=== PATIENT | female | born 1995 | race Caucasian/White ===

== ENCOUNTER → 2018-04-15 14:27 | Outpatient (CLI) | payer OTHER, SELFPAY ==
[2018-04-15 15:44] LABS: Absolute Neutrophil Count 2.4 X10^3/uL (2.0-7.7); Basophil# 0.05 X10^3/uL; Basophil% 0.9 % (0-1); Eosinophil# 0.18 X10^3/uL; Eosinophils% 3.2 % (0-5); Hematocrit 39.8 % (37-47); Hemoglobin 13.7 g/dl (12.0-15.0); Lymphocyte % 43.1 % (19-41); Mean Corp Hgb Conc 34.4 g/gl (32-36); Mean Corpuscular Hgb 29.7 pg (27.0-32.0); Mean Corpuscular Volume 86.1 fL (81-99); Mean Platelet Vol. 10.2 fl (6.2-12.0); Monocyte# 0.55 X10^3/uL; Monocyte% 9.9 % (0-10); Neutrophil # 2.39 X10^3/uL (2.7-7.7); Neutrophil % 42.9 % (47-70); Platelet Count 290 K/mm3 (150-450); RBC Distribution Width CV 12.4 % (11.6-14.6); RBC Distribution Width SD 38.2 fl (35.1-43.9); Red Blood Count 4.62 M/mm3 (4.2-5.4); White Blood Count 5.6 K/mm3 (4.4-11.0)
[2018-04-15 15:48] LABS: POSITIVE COUNT NO; POSITIVE DIFFERENTIAL NO; POSITIVE MORPHOLOGY NO
[2018-04-15 16:19] LABS: Anion Gap 11 (5-15); BUN 9 mg/dL (7-18); BUN/Creat Ratio 11.1 RATIO (10-20); Calcium,Total 9.1 mg/dL (8.5-10.1); Chloride 105 mmol/L (98-107); Creatinine, Serum 0.81 mg/dL (0.55-1.02); EST Glomerular Filtration Rate 93 mL/min (>60); Est Glom Filt Rate - Afr Amer 112 mL/min (>60); Glucose 81 mg/dL (74-106); Potassium 3.7 mmol/L (3.5-5.1); Sodium Level 142 mmol/L (136-145); T4 Free Direct 1.05 ng/dL (0.76-1.46); Thyroid Stim Hormone (TSH) 1.04 uIU/mL (0.358-3.74)
== END ==
PROVIDERS: Family Provider Family Medicine; PCP Family Medicine; Visit Provider Family Medicine
DX: R53.83 Other fatigue (principal)
CPT/HCPCS: 36415; 80048; 84439; 84443; 85025

== ENCOUNTER → 2018-04-23 11:58 | Outpatient (CLI) | payer OTHER, SELFPAY ==
[2018-04-23 13:19] LABS: Vitamin D,25 Hydroxy 48.5 ng/mL (29.95-100.01)
== END ==
PROVIDERS: Family Provider Family Medicine; PCP Family Medicine; Visit Provider Obstetrics & Gynecology
DX: R53.83 Other fatigue (principal)
CPT/HCPCS: 36415; 82306

== ENCOUNTER → 2019-01-02 08:19 | Outpatient (CLI) | payer OTHER, SELFPAY ==
--- NOTE | 2019-01-02 08:26 | US_ITS ---
STUDY: ABDOMINAL ULTRASOUND - RIGHT UPPER QUADRANT REASON FOR VISIT: Female, 23 years old. General abdominal pain for 3 months. History of gastritis and pneumonia. TECHNIQUE: Ultrasound evaluation of the right upper quadrant was performed with real-time and static roland-scale imaging. TECHNICAL QUALITY: Adequate. COMPARISON: None. FINDINGS: Liver: The liver measures 17.1 cm. There is normal echogenicity of the liver. The bile ducts are within normal limits. There is hepatic color flow. The direction of portal flow is hepatopetal. There is no demonstrated mass lesion. Gallbladder: Normal distended gallbladder. The gallbladder wall measures 2.2 mm. There is a negative sonographic Silva's sign. There is no pericholecystic fluid. There are no gallstones. Common Bile Duct (C.B.D.): The common bile duct measures 3.2 mm. Pancreas: Normal size of the head, body and tail of the pancreas. There is normal echogenicity of the pancreas. There is no demonstrated pancreatic mass or cyst. Right Kidney: Normal size of the right kidney. The right kidney measures 10.6 cm. Normal renal cortex. The right cortex measures 1.5 cm. There is no demonstrated renal mass or cyst. There is no right hydronephrosis. US/Abdomen Limited IMPRESSION: Normal right upper quadrant ultrasound examination. Electronically Signed: Bryon Daniels DO at 8:45 EDT Tel [phone], Service support ,
== END ==
PROVIDERS: Family Provider Family Medicine; PCP Family Medicine; Referring Provider Family Medicine; Visit Provider Family Medicine
DX: R10.11 Right upper quadrant pain (principal)
CPT/HCPCS: 76705

== ENCOUNTER → 2019-04-27 13:00 | Outpatient (CLI) | payer OTHER, SELFPAY ==
[2019-04-27 09:36] VITALS: BMI 28.4
[2019-04-29 11:31] LABS: HPV Reflexed? NOT INDICATED
== END ==
PROVIDERS: Family Provider Family Medicine; PCP Family Medicine; Referring Provider Obstetrics & Gynecology; Visit Provider Obstetrics & Gynecology
DX: Z12.4 Encounter for screening for malignant neoplasm of cervix (principal)
CPT/HCPCS: 87624; 88175; G0145

== ENCOUNTER → 2021-03-22 11:20 | Outpatient (CLI) | payer BC, SELFPAY ==
[2021-03-22 08:30] VITALS: BMI 29.7
[2021-03-22 12:25] LABS: hCG Titer Quant., Serum 875 mIU/mL (1-3)
== END ==
PROVIDERS: PCP Family Medicine; Referring Provider Nurse Practitioner Women's Health; Visit Provider Nurse Practitioner Women's Health
DX: N92.6 Irregular menstruation, unspecified (principal)
CPT/HCPCS: 36415; 84702

== ENCOUNTER → 2021-03-24 13:32 | Outpatient (CLI) | payer BC, SELFPAY ==
[2021-03-22 08:30] VITALS: BMI 29.7
[2021-03-24 16:48] LABS: hCG Titer Quant., Serum 2374 mIU/mL (1-3)
== END ==
PROVIDERS: PCP Family Medicine; Referring Provider Nurse Practitioner Women's Health; Visit Provider Nurse Practitioner Women's Health
DX: N91.2 Amenorrhea, unspecified (principal)
CPT/HCPCS: 36415; 84702

== ENCOUNTER → 2021-04-17 10:04 | Outpatient (CLI) | payer BC, SELFPAY ==
[2021-04-17 09:29] VITALS: BMI 29.7
[2021-04-17 10:41] LABS: Absolute Lymphocyte Count 1.51 X10^3/uL (0.83-4.51); Absolute Neutrophil Count 4.6 X10^3/uL (2.0-7.7); Basophil# 0.05 X10^3/uL; Basophil% 0.7 % (0-1); Eosinophil# 0.17 X10^3/uL; Eosinophils% 2.4 % (0-5); Hematocrit 40.2 % (37-47); Hemoglobin 13.4 g/dL (12.0-15.0); Lymphocyte # 1.51 X10^3/ul (0.83-4.51); Lymphocyte % 21.4 % (19-41); Mean Corp Hgb Conc 33.3 g/dL (32-36); Mean Corpuscular Hgb 29.1 pg (27.0-32.0); Mean Corpuscular Volume 87.4 fL (81-99); Mean Platelet Vol. 9.4 fl (6.2-12.0); Monocyte# 0.64 X10^3/uL; Monocyte% 9.1 % (0-10); NRBC Flagged by Analyzer 0 % (0-5); Neutrophil # 4.64 X10^3/uL (2.7-7.7); Platelet Count 292 K/mm3 (150-450); RBC Distribution Width CV 12.4 % (11.6-14.6); RBC Distribution Width SD 39.4 fl (35.1-43.9)
[2021-04-17 11:30] LABS: Amphetamine Urine VISTA NEGATIVE (<1000 ng/mL); Barbiturate Urine VISTA NEGATIVE (< 200 ng/mL); Benzodiazepine Urine VISTA NEGATIVE (< 200 ng/mL); Cocaine Urine VISTA NEGATIVE (< 300 ng/mL); Ecstacy Urine VISTA NEGATIVE (< 500 ng/mL); Methadone Urine VISTA NEGATIVE (< 300 ng/mL); PCP Urine VISTA NEGATIVE (< 25 ng/mL); THC Urine VISTA NEGATIVE (< 50 ng/mL); Vista UDS pH Range 7
[2021-04-17 11:52] LABS: HIV - WCH Non-Reactive (Nonreactive); Hepatitis B Surface Antigen Non-Reactive (Nonreactive); Hepatitis C Antibody Non-Reactive (Nonreactive); Rubella IgG Reactive (Nonreactive); Syphilis Antibodies Non-reactive
[2021-04-19 03:07] LABS: Chlamydia By Nucleic Acid AMP Negative (Negative)
[2021-04-19 11:55] LABS: Gonococcus By Nucleic Acid AMP Negative (Negative)
== END ==
PROVIDERS: PCP Internal Medicine; Referring Provider Obstetrics & Gynecology; Visit Provider Obstetrics & Gynecology
DX: Z34.90 Encounter for supervision of normal pregnancy, unspecified, unspecified trimester (principal); Z82.49 Family history of ischemic heart disease and other diseases of the circulatory system
CPT/HCPCS: 36415; 80307; 85025; 86703; 86762; 86780; 86803; 86850; 86900; 86901; 87086; 87088; 87340; 87491; 87591

== ENCOUNTER → 2021-06-13 08:58 | Outpatient (CLI) | payer MEDICAID, SELFPAY ==
[2021-06-19 13:07] LABS: Protein C Antigen 100 % (60-150); Protein C, Functional 110 % (73-180)
[2021-06-19 16:39] LABS: Antithrombin 3 Function 98 % (75-135); Protein S, Free 83 % (61-136); Protein S, Funtional 72 % (63-140); Protein S, Total 62 % (60-150)
== END ==
PROVIDERS: PCP Internal Medicine; Referring Provider Obstetrics & Gynecology; Visit Provider Obstetrics & Gynecology
DX: Z82.49 Family history of ischemic heart disease and other diseases of the circulatory system (principal)
CPT/HCPCS: 36415; 81241; 85300; 85302; 85303; 85305; 85306

== ENCOUNTER → 2021-08-17 10:55 | Outpatient (CLI) | payer BC, MEDICAID, SELFPAY | PROVIDERS: PCP Internal Medicine; Referring Provider Physician Assistant; Visit Provider Physician Assistant | DX: U07.1 COVID-19 (principal) | CPT/HCPCS: 87635; U0005; U0003 ==

== ENCOUNTER → 2021-09-05 07:47 | Outpatient (CLI) | payer BC, MEDICAID, SELFPAY ==
[2021-09-05 08:09] LABS: Absolute Lymphocyte Count 1.68 X10^3/uL (0.83-4.51); Absolute Neutrophil Count 6.8 X10^3/uL (2.0-7.7); Basophil# 0.03 X10^3/uL; Basophil% 0.3 % (0-1); Eosinophil# 0.26 X10^3/uL; Eosinophils% 2.7 % (0-5); Hematocrit 33.3 % (37-47); Hemoglobin 11.3 g/dL (12.0-15.0); Lymphocyte # 1.68 X10^3/ul (0.83-4.51); Lymphocyte % 17.6 % (19-41); Mean Corp Hgb Conc 33.9 g/dL (32-36); Mean Corpuscular Hgb 30.1 pg (27.0-32.0); Mean Corpuscular Volume 88.8 fL (81-99); Mean Platelet Vol. 9.2 fl (6.2-12.0); Monocyte# 0.67 X10^3/uL; NRBC Flagged by Analyzer 0 % (0-5); Neutrophil # 6.78 X10^3/uL (2.7-7.7); Neutrophil % 71.1 % (47-70); Platelet Count 288 K/mm3 (150-450); RBC Distribution Width SD 42.2 fl (35.1-43.9); Red Blood Count 3.75 M/mm3 (4.2-5.4); White Blood Count 9.5 K/mm3 (4.4-11.0)
[2021-09-05 08:25] LABS: Glucose Challenge Gest 1H 50g 148 mg/dL (70-140)
== END ==
PROVIDERS: PCP Internal Medicine; Referring Provider Obstetrics & Gynecology; Visit Provider Obstetrics & Gynecology
DX: Z13.1 Encounter for screening for diabetes mellitus (principal)
CPT/HCPCS: 36415; 82950; 85025

== ENCOUNTER → 2021-09-11 07:09 | Outpatient (CLI) | payer BC, MEDICAID, SELFPAY ==
[2021-09-11 07:50] LABS: Glucose GTT-Gestation. Fasting 91 mg/dL (<105)
[2021-09-11 09:30] LABS: Glucose GTT-Gestational 1 Hr 120 mg/dL (<190)
[2021-09-11 10:38] LABS: Glucose GTT-Gestational 2 Hr 100 mg/dL (<165)
[2021-09-11 11:44] LABS: Glucose GTT-Gestational 3 Hr 90 L (<145)
== END ==
PROVIDERS: PCP Internal Medicine; Referring Provider Nurse Practitioner Women's Health; Visit Provider Nurse Practitioner Women's Health
DX: Z13.1 Encounter for screening for diabetes mellitus (principal)
CPT/HCPCS: 36415; 82951; 82952

== ENCOUNTER 2021-10-12 07:53 | Outpatient (CLI) | payer BC, MEDICAID, SELFPAY ==
--- NOTE | 2021-10-12 07:55 | US_ITS ---
STUDY: SECOND AND THIRD TRIMESTER OBSTETRICAL ULTRASOUND - LIMITED REASON FOR EXAM: Female, 25 years old growth LMP: 02/20/2021. PRIOR ULTRASOUND: None. TECHNIQUE: Transabdominal TECHNICAL QUALITY: Adequate. FINDINGS: There is a single intrauterine fetus. The fetus is in a cephalic presentation. There is demonstrated cardiac activity with a heart rate of 137 bpm. There is a normal amniotic fluid volume. The largest amniotic fluid pocket measures 4.4 cm. The amniotic fluid index (MAGGIE) is 12 cm. The placenta is posterior and right lateral in location and is not low lying. There are Grade 2 placental changes. The cervix measures 3.8 cm in length. BIOMETRY: BPD: 8.9 cm: 35 weeks, 6 days HC: 31.7 cm: 35 weeks, 4 days AC: 30.5 cm: 34 weeks, 3 days FL: 6.7 cm: 34 weeks, 3 days Age by LMP: 33 weeks, 3 days. TIM by LMP: 11/27/2021. age by current US: 34 weeks, 5 days. TIM by current US: 11/18/2021. Estimated weight: 2530 grams, +/- 379 grams, 82 percentile. US/OB Limited With Biometrics IMPRESSION: Single live intrauterine gestation with a mean gestational age of 34 weeks and 5 days. Electronically Signed: Pedrito Mcdonald MD at 14:16 EST ,
== END 2021-10-12 23:59 | disposition short-term general hospital (02) ==
LOC: OPUS 07:53
PROVIDERS: PCP Internal Medicine; Referring Provider Nurse Practitioner Women's Health; Visit Provider Nurse Practitioner Women's Health
DX: U07.1 COVID-19 (principal)
CPT/HCPCS: 76816

== ENCOUNTER 2021-10-21 10:20 | Outpatient (CLI) | payer BC, MEDICAID, SELFPAY ==
[2021-10-21] VITALS (9 sets, daily range): BP systolic 117–126; BP diastolic 63–78; PULSE 114–133; TEMP 37.4–37.7; O2SAT 97–100; BMI 36.0
[2021-10-21 11:03] LABS: Mucous, Urine 0 SEEN /hpf (<or=2+); Red Blood Cells-Urine 0 SEEN /hpf (0-5); White Blood Cells 0 SEEN /hpf (0-5)
[2021-10-21 11:06] LABS: Color, Urine Yellow (Yellow); Glucose, Dipstick Normal (Normal); Ketone-Dipstick 50 mg/dl (Negative); Leukocyte Esterase-Dipstick 25 /ul (Negative); Nitrite-Dipstick Negative (Negative); Occult Blood-Urine 10 /ul (Negative); Protein-Dipstick 15 mg/dl (Negative); Urine Bilirubin Dipstick Negative (Negative); Urine Clarity Sl. Cloudy (Clear); Urine Urobilinogen 1 mg/dl (Normal)
[2021-10-21 11:12] LABS: Bacteria 1+ /hpf (None Seen); Squamous Epithelial Cells - UA 5-10 SEEN /hpf (5-10)
[2021-10-21] MEDS: Ondansetron 4 MG/2 ML Vial IV (11:56)
[2021-10-21] MEDS: Famotidine 200 MG/20 ML MDV 20 MG in 0.9% Normal Saline (Pres. free 8 ML 300 MG IV (12:02)
[2021-10-21 12:10] LABS: Absolute Lymphocyte Count 0.52 X10^3/uL (0.83-4.51); Basophil# 0.02 X10^3/uL; Basophil% 0.2 % (0-1); Hematocrit 34.7 % (37-47); Lymphocyte # 0.52 X10^3/ul (0.83-4.51); Lymphocyte % 6.2 % (19-41); Mean Corp Hgb Conc 31.7 g/dL (32-36); Mean Corpuscular Hgb 27.6 pg (27.0-32.0); Mean Corpuscular Volume 87.2 fL (81-99); Monocyte% 7.2 % (0-10); NRBC Flagged by Analyzer 0 % (0-5); Neutrophil # 7.04 X10^3/uL (2.7-7.7); Neutrophil % 84.4 % (47-70); POSITIVE DIFFERENTIAL YES; Platelet Count 279 K/mm3 (150-450); RBC Distribution Width CV 13.2 % (11.6-14.6); RBC Distribution Width SD 41.4 fl (35.1-43.9); Red Blood Count 3.98 M/mm3 (4.2-5.4); White Blood Count 8.4 K/mm3 (4.4-11.0)
[2021-10-21 12:16] LABS: Differential Indicated SCAN CRITERIA MET
[2021-10-21 12:42] LABS: ALB/GLOB Ratio 0.6 RATIO (0.9-2.4); AST(SGOT) 17 U/L (15-37); Alanine Aminotransfer ALT/SGPT 14 U/L (13-56); Albumin, Serum 2.4 g/dL (3.2-5.0); Alkaline Phosphatase 151 U/L (45-117); Anion Gap 6 (5-15); BUN 8 mg/dL (7-18); BUN/Creat Ratio 12.1 RATIO (10-20); Chloride 106 mmol/L (98-107); Creatinine, Serum 0.66 mg/dL (0.55-1.02); EST Glomerular Filtration Rate 115 mL/min (>60); Est Glom Filt Rate - Afr Amer 139 mL/min (>60); Estimated Creatinine Clearance 111.54 ml/min; Globulin 3.7 g/dL (2.2-4.2); Glucose 112 mg/dL (74-106); Potassium 3.6 mmol/L (3.5-5.1); Protein, Total 6.1 g/dL (6.4-8.2); Sodium Level 135 mmol/L (136-145)
[2021-10-21] MEDS: Ringers, Lactated 1,000 ML IV.SOLN. 1000 ML IV (12:55)
[2021-10-21] MEDS: Potassium Chloride Oral Tablet 20 MEQ 40 MEQ PO (13:35)
[2021-10-21] MEDS: Acetaminophen 500 MG Tablet 1000 MG PO (13:50)
[2021-10-21] MEDS: Ceftriaxone 1 GM/50 ML BAG IV (14:49)
--- NOTE | 2021-10-21 21:53 | OB.TRI.HP_ITS ---
HPI - General HPI Narrative SILVESTRE WALTON, is a 25 y/o @ 34 weeks 5 days who presents to L&D for nausea and vomiting in . This started earlier in the day and the patient states that she is unable to hold down fluids at home. Maternal Data Information TIM Calculator Estimated Delivery Date Method Current WG Current Estimate 11/27/21 LMP (Certain) 36w 6d Other Estimates 11/22/21 Ultrasound #1 37w 4d PFSH PFSH Medical History Acne Lab test positive for detection of COVID-19 virus Narcolepsy Home Medications prenat.vits,danelle,[id number] 1 tab PO DAILY 04/03/21 [History Last Taken 10/19/21 22:00 1 tab] dihydroxyaluminum sodium carb [Rolaids] 2 mg PO PRN PRN 10/21/21 [History Last Taken 10/21/21 2 tabs] promethazine 12.5 mg tablet 12.5 mg PO Q6H PRN #60 tab 10/24/21 [Rx Last Taken Unknown] Allergy/AdvReac Type Severity Reaction Status Date / Time No Known Allergies Allergy Verified 11/03/21 08:45 Family History Grandmother Diabetes Breast cancer Brother Diabetes type 1, controlled Mother Thyroid disorder Father CVA (cerebral vascular accident) DVT (deep venous thrombosis) Sister Cancer ALL Social History adopted: No household members: significant other current occupational status: employed current occupation: [employer] pets and animals: Yes (avoid litter box) pets and animals: cat(s) and dog(s) Smoking Status: Never smoker alcohol intake: current alcohol intake frequency: holidays/special occasions only details: not while substance use type: does not use caffeine: No what type of physical activity do you participate in: none seatbelt use: always do you feel safe at home: Yes additional social history: boyfriend 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) History 1 Elective abortions Hx Para Spontaneous abortions Hx # Term Pregnancies Ectopic pregnancies Hx # Pregnancies Multiple births # of living children Visit Details Expected Delivery Route/Plan Labor Preferences- CB/BF classes: yes labor support person: Go labor intervention preferences: [] pain management options preferred: wants natural cut cord/dad catch: maybe : yes PP control planned: discussed discussed possible routes of delivery and associated risks: [] special requests: [] Plans Covid status: non immune, counseled regarding risk of covid in vs vaccination and declined vaccination Flu vaccine: given Tdap vaccine: given Rhogam: na LARC form signed: yes movement and labor precautions reviewed. Problem list reviewed and updated with the most current plan of care details and appropriate orders placed. Relevant counseling for the gestational age provided. Continue routine care and follow up unless otherwise noted in visit notes/problem list details OB Flowsheet Initial Weight: 180 lb Date -?-?-?-?-?-?-?-?-?-?-?-?- EGA Weight BP Urine Prot -?-?-?-?-?-?-?-?-?-?-?-?- Glucose FHR FuHt Pres Dilation -?-?-?-?-?-?-?-?-?-?-?-?- Effaced St Visit Note 04/17/21 -?--?-?-?-?-?-?-?-?-?-?-?- 8w 0d 122/72 -?-?-?-?-?-?-?-?-?-?-?-?- 180 -?-?-?-?-?-?-?-?-?-?-?-?- SM- CRL cons wit h LMP 05/15/21 -?-?-?-?-?-?-?-?-?-?-?-?- 12w 0d 179 lb 2 oz (-14 oz) 120/68 Negative -?-?-?-?-?-?-?-?-?-?-?-?- Negative 160 -?-?-?-?-?-?-?-?-?-?-?-?- GP - no cramping or bleeding. Anatomy scan ordered. 06/13/21 -?-?-?-?-?-?-?-?-?-?-?-?- 16w 1d 182 lb 2 oz (+2 lb 2 oz) 102/64 Negative -?-?-?-?-?-?-?-?-?-?-?-?- Negative 145 -?-?-?-?-?-?-?-?-?-?-?-?- SM- no vb crampi ng us scheduled 07/12/21 -?-?-?-?-?-?-?-?-?-?-?-?- 20w 2d 187 lb 6 oz (+7 lb 6 oz) 132/68 Negative -?-?-?-?-?-?-?-?-?-?-?-?- Negative 148 -?-?-?-?-?-?-?-?-?-?-?-?- -No VB, LOF. G ood FM. Order for echo. flu vaccine. Nl anatomy US. 08/07/21 -?-?-?-?-?-?-?-?-?-?-?-?- 24w 0d 106/62 Negative -?-?-?-?-?-?-?-?-?-?-?-?- Negative 145 -?-?-?-?-?-?-?-?-?-?-?-?- SM- no vb lof go od fm no reuglar ctx 09/05/21 -?-?-?-?-?-?-?-?-?-?-?-?- 28w 1d 200 lb (+20 lb) 124/70 Negative -?-?-?-?-?-?-?-?-?-?-?-?- Negative 156 -?-?-?-?-?-?-?-?-?-?-?-?- -No Vb, LOF. G ood FM. Ordered 32 and 36 wk growth US. 28 wk labs. karthikeyan cordova. 09/22/21 -?-?-?-?-?-?-?-?-?-?-?-?- 30w 4d 202 lb 8 oz (+22 lb 8 oz) 120/68 Negative -?-?-?-?-?-?-?-?-?-?-?-?- Negative 163 32 -?-?-?-?-?-?-?-?-?-?-?-?- JV- echo was nor mal. no complaints today. has growth scans ordered, taking baby asa daily 10/05/21 -?-?--?-?-?-?-?-?-?-?-?-?- 32w 3d 208 lb 6 oz (+28 lb 6 oz) 126/70 Negative -?-?-?-?-?-?-?-?-?-?-?-?- Negative 145 33 -?-?-?-?-?-?-?-?-?-?-?--?- SM- no vb lof go od fm no regular ctx 10/19/21 -?-?-?-?-?-?-?-?-?-?-?-?- 34w 3d 213 lb 4 oz (+33 lb 4 oz) 130/72 Negative -?-?-?-?-?-?-?-?-?-?-?-?- Negative 152 35 -?-?-?-?-?-?-?-?-?-?-?-?- JV- no lof, vagi nal bleeding, or dec fm. last growth scan was 82%. next scan is at 36 weeks for growth. 10/21/21 -?-?-?-?-?-?-?-?-?-?-?-?- 34w 5d 209 lb 14.081 oz (+29 lb 14.081 oz) 126/78 126/78 122/73 124/63 117/70 124/72 15 mg/dl (Negative) H -?-?-?-?-?-?-?-?-?-?-?-?- -?-?-?-?-?-?-?-?-?-?-?-?- 10/23/21 -?-?-?-?-?-?-?-?-?-?-?-?- 35w 0d 214 lb (+34 lb) 110/60 Trace -?-?-?-?-?-?-?-?-?-?-?-?- Negative 149 36 -?-?-?-?-?-?-?-?-?-?-?-?- MH-No VB, LOF. G ood FM. Seen WP 2 for dehydration. Feeling much improved. Slight nausea today but needs to pharmacy picking technician new Rx. Will call office with name of med. 11/03/21 -?-?-?-?-?-?-?-?-?-?-?-?- 36w 4d 216 lb 4 oz (+36 lb 4 oz) 114/78 Negative -?-?-?-?-?-?-?-?-?-?-?-?- Negative 145 37 Cephalic 0 .5 -?-?-?-?-?-?-?-?-?-?-?-?- -1 SM- no v b lof good fm no regualr ctx gbs today ROS Constitutional Constitutional: Reports systems reviewed and no addt'l complaints, except as documented Gastrointestinal Gastrointestinal: Denies bloating, constipation, cramping, diarrhea, nausea or vomiting Genitourinary Genitourinary: Reports other Details: Denies vaginal odor, vaginal bleeding, or vaginal discharge ; Denies difficulty urinating or flank pain Physical Exam HEENT normocephalic Resp normal respiratory effort and normal air movement no CVA tenderness Extremity normal to inspection General Extremity: edema bilateral (trace ) NST FHR Rate Baby A Baseline: 1600 Variability:: Moderate Accelerations:: 15 x 15 Decelerations:: None NST Reactive:: Yes FHR Category:: Category I Uterine Activity:: irritability present Assessment & Plan (1) Abnormal glucose affecting : COMMENT: 3 hr GTT NL (2) Lab test positive for detection of COVID-19 virus: COMMENT: 81mg ASA and growth US @ 32 and 36 wk nl growth US (3) History of congenital heart defect: COMMENT: in patient, closed spontaneously as a child, recommend - normal echo and growth- needs repeat views in 2 weeks (4) Anxiety: COMMENT: no meds/bad experience with med in past, started counseling. (5) : QUALIFIERS: Weeks of gestation: 36 weeks Qualified Code(s): Z3A.36 - 36 weeks gestation of COMMENT: declined afp, genetic and carrier screen. Anatomy US normal (6) Supervision of normal first : QUALIFIERS: Trimester: third trimester Qualified Code(s): Z34.03 - Encounter for supervision of normal first , third trimester COMMENT: PRR TIM 11/27/21 girl [place] BF: Go (7) Narcolepsy: (8) Depression: QUALIFIERS: Depression Type: dysthymia Qualified Code(s): F34.1 - Dysthymic disorder COMMENT: counseling started. didn't like wellbutrin. failed celexa in the past. May consider zoloft later intake with counselor done this week 09/22/21 PLAN: IV fluids, IV zofran and rest. Pt improved after several hours of monitoring. dc'd to home Charges/Coding Multi Select Codes Visit Charges Office Visit/Consults: 55129 OV L3 Est Urinary/Genital Urinary/Genital CPT Codes: 58586-80 non-stress test Interp
== END 2021-10-21 16:00 | disposition home or self-care (01) ==
LOC: WPOUT 10:25 → WP 10:25
PROVIDERS: PCP Internal Medicine; Referring Provider Obstetrics & Gynecology; Visit Provider Obstetrics & Gynecology
DX: O99.810 Abnormal glucose complicating pregnancy (principal); O98.513 Other viral diseases complicating pregnancy, third trimester; O99.353 Diseases of the nervous system complicating pregnancy, third trimester; O99.343 Other mental disorders complicating pregnancy, third trimester; U07.1 COVID-19; F34.1 Dysthymic disorder; G47.419 Narcolepsy without cataplexy; Z3A.36 36 weeks gestation of pregnancy
CPT/HCPCS: 96365; 96375; 96367; 59025; 59050; 80053; 81001; 85025; 87086; 87088; 87426; 87804; 99218; J7120; G0378; J2405; J3490

== ENCOUNTER 2021-11-03 09:59 | Outpatient (CLI) | payer BC, MEDICAID, SELFPAY | END 2021-11-03 23:59 | disposition home or self-care (01) | LOC: LABSPEC 11-04 10:01 | PROVIDERS: PCP Internal Medicine; Visit Provider Obstetrics & Gynecology | DX: Z34.03 Encounter for supervision of normal first pregnancy, third trimester (principal) | CPT/HCPCS: 87081 ==

== ENCOUNTER 2021-11-10 08:39 | Outpatient (CLI) | payer BC, MEDICAID, SELFPAY ==
--- NOTE | 2021-11-10 09:00 | US_ITS ---
STUDY: SECOND AND THIRD TRIMESTER OBSTETRICAL ULTRASOUND - LIMITED REASON FOR EXAM: Female, 25 years old . growth. LMP: 02/20/2021. PRIOR ULTRASOUND: Comparison is made with prior study dated 10/12/2021. TECHNIQUE: Transabdominal TECHNICAL QUALITY: Adequate. FINDINGS: There is a single intrauterine fetus. The fetus is in a cephalic presentation. There is demonstrated cardiac activity with a heart rate of 140 bpm. There is a normal amniotic fluid volume. The largest amniotic fluid pocket measures 5.1 cm. The amniotic fluid index (MAGGIE) is 12.3 cm. The placenta is posterior in location and is not low lying. There are Grade 3 placental changes. BIOMETRY: BPD: 9.7 cm: 39 weeks, 5 days HC: 34.8 cm: 40 weeks, 2 days AC: 35.6 cm: 39 weeks, 3 days FL: 7.4 cm: 37 weeks, 6 days Age by LMP: 37 weeks, 4 days. TIM by LMP: 11/27/2021. age by prior US: 38 weeks, 6 days. TIM by prior US: 11/18/2021. age by current US: 39 weeks, 2 days. TIM by current US: 11/16/2019. Estimated weight: 3759 grams, +/- 564 grams, 93 percentile. US/OB Limited With Biometrics IMPRESSION: Single live intrauterine gestation with a mean gestational age of 38 weeks and 6 days. The measurements obtained today fall within the normal expected range. Electronically Signed: Pedrito Mcdonald MD at 14:50 EST ,
== END 2021-11-10 23:59 | disposition home or self-care (01) ==
LOC: OPUS 09:00
PROVIDERS: PCP Internal Medicine; Referring Provider Nurse Practitioner Women's Health; Visit Provider Nurse Practitioner Women's Health
DX: U07.1 COVID-19 (principal)
CPT/HCPCS: 76816

== ENCOUNTER 2021-11-30 01:25 | Inpatient (IN) | payer MEDICAID, SELFPAY ==
[2021-11-30] VITALS (70 sets, daily range): BP systolic 115–170; BP diastolic 57–91; PULSE 61–168; TEMP 36.7–38.5; O2SAT 78–100; BMI 38.5
[2021-11-30] MEDS: Lactated Ringers 1,000 ML 999 ML IV (02:10)
[2021-11-30 02:28] LABS: Absolute Lymphocyte Count 1.84 X10^3/uL (0.83-4.51); Absolute Neutrophil Count 5.5 X10^3/uL (2.0-7.7); Basophil# 0.02 X10^3/uL; Basophil% 0.2 % (0-1); Eosinophil# 0.17 X10^3/uL; Hematocrit 33.6 % (37-47); Hemoglobin 10.8 g/dL (12.0-15.0); Lymphocyte # 1.84 X10^3/ul (0.83-4.51); Lymphocyte % 21.6 % (19-41); Mean Corp Hgb Conc 32.1 g/dL (32-36); Mean Corpuscular Hgb 26.9 pg (27.0-32.0); Mean Corpuscular Volume 83.8 fL (81-99); Mean Platelet Vol. 11.3 fl (6.2-12.0); Monocyte# 0.94 X10^3/uL; Monocyte% 11.1 % (0-10); NRBC Flagged by Analyzer 0 % (0-5); Neutrophil # 5.47 X10^3/uL (2.7-7.7); Neutrophil % 64.4 % (47-70); Platelet Count 269 K/mm3 (150-450); RBC Distribution Width CV 13.6 % (11.6-14.6); RBC Distribution Width SD 42.3 fl (35.1-43.9); Red Blood Count 4.01 M/mm3 (4.2-5.4); White Blood Count 8.5 K/mm3 (4.4-11.0)
[2021-11-30] MEDS: fentaNYL 100 MCG/2 ML Ampul IV (02:42)
[2021-11-30 02:44] LABS: AST(SGOT) 15 U/L (15-37); Alanine Aminotransfer ALT/SGPT 11 U/L (13-56); Creatinine, Serum 0.68 mg/dL (0.55-1.02); EST Glomerular Filtration Rate 110 mL/min (>60); Est Glom Filt Rate - Afr Amer 133 mL/min (>60); Estimated Creatinine Clearance 108.26 ml/min; Uric Acid 4.1 mg/dL (2.6-6.0)
[2021-11-30] MEDS: Lactated Ringers 1,000 ML 50 ML IV (03:11)
[2021-11-30] MEDS: fentaNYL-bupivacaine (epidural) 100 ML BAG EPIDURAL ×4 (04:24→16:58)
--- NOTE | 2021-11-30 06:46 | PCM.HP.OB ---
HPI - General General Date of Admission: 11/30/21 HPI Narrative SILVESTRE WALTON, is a 25 y/o @40 weeks who presents to L&D in active labor. Her blood pressure was somewhat elevated when she arrived, however [facility] labs were found to be normal. [facility] Medical History (Updated 11/30/21 @ 01:35 by Gianna Gonsales) Acne Anxiety Lab test positive for detection of COVID-19 virus Narcolepsy Home Medications prenat.vits,danelle,[id number] 1 tab PO DAILY 04/03/21 [History Last Taken 11/29/21 08:00] aspirin 1 mg PO DAILY 11/30/21 [History Last Taken Unknown] Allergy/AdvReac Type Severity Reaction Status Date / Time No Known Allergies Allergy Verified 11/30/21 01:30 Family History Grandmother Diabetes Breast cancer Brother Diabetes type 1, controlled Mother Thyroid disorder Father CVA (cerebral vascular accident) DVT (deep venous thrombosis) Sister Cancer ALL Social History adopted: No household members: significant other current occupational status: employed current occupation: [employer] pets and animals: Yes (avoid litter box) pets and animals: cat(s) and dog(s) Smoking Status: Never smoker alcohol intake: current alcohol intake frequency: holidays/special occasions only details: not while substance use type: does not use caffeine: No what type of physical activity do you participate in: none seatbelt use: always do you feel safe at home: Yes additional social history: boyfriend 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) History 1 Elective abortions Hx Para 0 Spontaneous abortions Hx # Term Pregnancies Ectopic pregnancies Hx # Pregnancies Multiple births # of living children NST FHR Rate Baby A Variability:: Moderate Accelerations:: 15 x 15 Decelerations:: Variable NST Reactive:: Yes FHR Category:: Category I Uterine Activity:: q3-5 minutes ROS Constitutional Constitutional: Denies change in weight, fatigue, fever(s), headache(s), poor appetite or weakness Eyes Eyes: Denies blurry vision, change in vision, seeing flashes or spots in vision ENT HEENT: Denies dizziness, headache(s), loss taste/smell or sore throat Cardiovascular Cardiovascular: Denies chest pain, dizziness, dyspnea, irregular heart rhythm, leg edema, palpitations, rapid heart rate or vomiting Respiratory/Chest Respiratory/Chest: Denies chest tightness, cough, dyspnea or breast pain Gastrointestinal Gastrointestinal: Denies abdominal pain, anorexia, constipation, cramping, diarrhea, hemorrhoids, vomiting or weight changes Genitourinary Genitourinary: Denies dysuria, flank pain, genital lesions, genital pain, urinary frequency or urinary urgency Musculoskeletal Musculoskeletal: Denies back pain, difficulty walking, joint pain, limited range of motion, muscle cramps or numbness Integumentary Integumentary: Denies lesions or unusual bruising Neurologic Neurologic: Denies abnormal movements, abnormal speech, dizziness, numbness, seizure-like activity or syncope Psychiatric Psychiatric: Denies anxiety, behavioral changes, change in appetite, change in libido, cognitive impairment, confusion, depression, difficulty concentrating, hallucinations or suicidal thoughts Endocrine Endocrinology: Denies excessive sweating, polydipsia or polyuria Hematologic/Lymphatic Hematologic/Lymphatic: Denies easy bleeding, easy bruising or lymphadenopathy Allergic/Immunologic Allergic/Immunologic: Denies itchy eyes, lip swelling, seasonal rhinorrhea, rhinitis, throat swelling, tongue swelling, eczemia, wheezing or asthma Vital Signs Vital Signs Vital Signs: 11/30/21 00:46 11/30/21 03:48 11/30/21 03:53 Temperature Temperature Source Pulse Rate 73 79 68 Blood Pressure 134/79 H BP Systolic 134 BP Diastolic 79 Pulse Ox 100 100 11/30/21 03:58 11/30/21 03:59 11/30/21 04:03 Temperature Temperature Source Pulse Rate 92 71 80 Blood Pressure 149/72 H BP Systolic 149 BP Diastolic 72 Pulse Ox 100 100 11/30/21 04:05 11/30/21 04:08 11/30/21 04:09 Temperature 98.2 F Temperature Source Temporal Pulse Rate 78 93 Blood Pressure 156/91 H 165/80 H BP Systolic 156 165 BP Diastolic 91 80 Pulse Ox 99 11/30/21 04:13 11/30/21 04:15 11/30/21 04:18 Temperature Temperature Source Pulse Rate 107 H 90 99 Blood Pressure 146/91 H BP Systolic 146 BP Diastolic 91 Pulse Ox 99 99 11/30/21 04:19 11/30/21 04:23 11/30/21 04:24 Temperature Temperature Source Pulse Rate 88 70 82 Blood Pressure 138/81 H 123/61 H BP Systolic 138 123 BP Diastolic 81 61 Pulse Ox 100 11/30/21 04:28 11/30/21 04:29 11/30/21 04:33 Temperature Temperature Source Pulse Rate 82 85 Blood Pressure 123/70 H BP Systolic 123 BP Diastolic 70 Pulse Ox 100 100 11/30/21 04:35 11/30/21 04:38 11/30/21 04:40 Temperature Temperature Source Pulse Rate 96 85 78 Blood Pressure 124/78 H 121/62 H BP Systolic 124 121 BP Diastolic 78 62 Pulse Ox 100 11/30/21 04:42 11/30/21 05:13 11/30/21 05:16 Temperature 98.2 F Temperature Source Temporal Pulse Rate 61 71 93 Blood Pressure 145/72 H 135/89 H BP Systolic 145 135 BP Diastolic 72 89 Pulse Ox 82 11/30/21 06:25 Temperature 98.3 F Temperature Source Temporal Pulse Rate 81 Blood Pressure 140/75 H BP Systolic 140 BP Diastolic 75 Pulse Ox 100 Weight Weight: 225 lb 9.584 oz Body Mass Index (BMI) 38.5 Physical Exam Const alert, oriented x3, no apparent distress and healthy appearing General Appearance: cooperative; Negative for anxious HEENT normocephalic Face and Sinus: normal facial exam Eyes EOMs intact bilaterally and no scleral icterus General Eye: normal appearance of both eyes Neck full ROM and supple Lymph Lymphatic: no lymphadenopathy noted Chest Chest: abnormal inspection of the chest Resp normal respiratory effort Effort and Inspection: able to speak in complete sentences Cardio regular rate GI soft to palpation and non-tender Inspection: gravid Palpation: soft; Negative for tender external exam normal Amniotic Fluid: ROM+plus Back/Spine no CVA tenderness Extremity normal to inspection, full ROM and no clubbing, cyanosis or edema General Extremity: Negative for calf tenderness or edema Skin Lesions: no lesions Rashes: no rashes Psych mental status grossly normal Labs Labs Labs: Blood Type O POSITIVE Antibody Screen NEGATIVE Hct 33.6 % (37-47) L Hgb 10.8 g/dL (12.0-15.0) L Obstetrics US Syphilis Total Ab Non-reactive Rubella IgG Antibody Reactive (Nonreactive) Hep Bs Antigen Non-Reactive (Nonreactive) Chlamydia DNA (ESTUARDO) Negative (Negative) Neisseria gonorrhoeae DNA (ESTUARDO) Negative (Negative) HIV 1&2 Antibody Non-Reactive (Nonreactive) Glucose 1 Hr 50 gm 148 mg/dL (70-140) H Assessment & Plan (1) Depression: QUALIFIERS: Depression Type: dysthymia Qualified Code(s): F34.1 - Dysthymic disorder COMMENT: counseling started. didn't like wellbutrin. failed celexa in the past. May consider zoloft later intake with counselor done this week 09/22/21 (2) Supervision of normal first : QUALIFIERS: Trimester: third trimester Qualified Code(s): Z34.03 - Encounter for supervision of normal first , third trimester COMMENT: PRR TIM 11/27/21 girl [place] BF: Go (3) : QUALIFIERS: Weeks of gestation: 39 weeks Qualified Code(s): Z3A.39 - 39 weeks gestation of COMMENT: declined afp, genetic and carrier screen. Anatomy US normal. GBS neg IOL set up for 12/04/21 at 7 pm (cytotec) (4) Anxiety: COMMENT: no meds/bad experience with med in past, started counseling. (5) History of congenital heart defect: COMMENT: in patient, closed spontaneously as a child, recommend - normal echo and growth- needs repeat views in 2 weeks (6) Abnormal glucose affecting : COMMENT: 3 hr GTT NL (7) Lab test positive for detection of COVID-19 virus: COMMENT: 81mg ASA and growth US @ 32 and 36 wk nl growth US (8) Narcolepsy: PLAN: Patient presents IAL, plan expectant management for , pitocin/AROM PRN if needed. Pain management: plans epidural. GBS negative. Management of any complications: none other than covid in I have reviewed the [facility] and made any clinically relevant updates.
--- NOTE | 2021-11-30 06:50 | PN_ITS ---
Progress Note pt is comfortable with epidural. She consents to AROM current tracing: FHT: Moderate variability reactive no decelerations category I tracing Ringo: q2 min Contractions cx: 890/0 membranes ruptured with clear fluid return reviewed tracing abnormalities since last note: cat 1 A/P: continue pitocin. anticpate soon
[2021-11-30] MEDS: Lactated Ringers 1,000 ML 200 ML IV ×3 (08:16→17:39)
[2021-11-30] MEDS: Mag Hydrox/Al Hydrox/Simeth 30 ML UDC PO (11:23)
[2021-11-30] MEDS: Ondansetron 4 MG/2 ML Vial IV (11:39)
--- NOTE | 2021-11-30 13:17 | PCM.PN.BLA ---
Progress Note pt is sitting up in bed. epidural running and she is comfortable. current tracing: FHT: 145 Moderate variability reactive no decelerations category I tracing Ali Chukson: q 2 min Contractions cx: 9/80/0 at 0 station A/P: arrested at 0 station now for 6 hours and some swelling on the anterior rim. will try benadryl and give a bit more time to descend
[2021-11-30] MEDS: DiphenhydrAMINE 50 MG/ML Syringe IV (13:28)
[2021-11-30 13:40] LABS: Protein, Urine (Random) 230.9 mg/dL (<11.9); Protein:Creat Ratio 1749 mg/g CRE (0-200)
[2021-11-30] MEDS: Oxytocin 30 units/NS 500 ml 30 UNITS/500 ML IV.SOLN IV (16:32)
[2021-11-30] MEDS: Lactated Ringers 500 ML 999 ML IV (19:25)
[2021-11-30] MEDS: Oxytocin 30 units/NS 500 ml 30 UNITS/500 ML IV.SOLN 334 UNITS IV (19:55)
--- NOTE | 2021-11-30 20:17 | EX.PCM.OBRPT ---
Assessment & Plan (1) Depression: QUALIFIERS: Depression Type: dysthymia Qualified Code(s): F34.1 - Dysthymic disorder COMMENT: counseling started. didn't like wellbutrin. failed celexa in the past. May consider zoloft later intake with counselor done this week 09/22/21 (2) Supervision of normal first : QUALIFIERS: Trimester: third trimester Qualified Code(s): Z34.03 - Encounter for supervision of normal first , third trimester COMMENT: PRR ITM 11/27/21 girl [place] BF: Go (3) : QUALIFIERS: Weeks of gestation: 39 weeks Qualified Code(s): Z3A.39 - 39 weeks gestation of COMMENT: declined afp, genetic and carrier screen. Anatomy US normal. GBS neg IOL set up for 12/04/21 at 7 pm (cytotec) (4) Anxiety: COMMENT: no meds/bad experience with med in past, started counseling. (5) History of congenital heart defect: COMMENT: in patient, closed spontaneously as a child, recommend - normal echo and growth- needs repeat views in 2 weeks (6) Abnormal glucose affecting : COMMENT: 3 hr GTT NL (7) Lab test positive for detection of COVID-19 virus: COMMENT: 81mg ASA and growth US @ 32 and 36 wk nl growth US (8) Narcolepsy: Vaginal Delivery Maternal Presentation Maternal Presentation: Active Labor Type of Induction: Amniotomy Operative Information Date of Procedure: 11/30/21 Pre-Operative Diagnosis: 40 weeks, active labor, prolonged decels, protracted labor Post-Operative Diagnosis: 40 weeks, active labor, prolonged decels, protracted labor Type of Anesthesia: Epidural Estimated Blood Loss: 200cc Findings Description of Procedure: Patientpushed for 3 hours and a prolonged decel was noted. The patient was put into a left lateral position and the heart rate recovered after 2 minutes. She was then consented for a vacuum extraction. The kiwi vacuum was placed posterior to the anterior fontanelle and pumped to the green zone on the device. The device was pulled and popped off x 2. This assisted in decent to a +3 station and she pushed the rest of the time on her own. The patient delivered the head in the DEMETRIUS presentation. The head was delivered atraumatically. The anterior and posterior shoulders delivered without complication followed by the rest of the infant and the was placed on the maternal abdomen. Delayed cord clamping was employed for approximately 60 seconds. Cord was clamped and cut and gentle traction was applied to the cord and the placenta delivered spontaneously immediately following it was noted to be intact with three-vessel cord. The perineum and vagina were inspected and noted to have a 1st degree laceration and also multiple micro tears along the posterior aspect of the vagina. After the 1st degree was repaired with a 3-0 vicryl suture, Raymond was applied to the micro tears and curlex packing was placed at the lower vaginal region. EBL was 200cc. Patient and tolerated delivery well. Presentation: Vertex Amniotic Fluid Description: Clear Placental Delivery Description: Spontaneous Placenta Disposition: [facility] Cord Vessel Description: 3 Vessels Cord Entanglement: None A Gender: Female (1 minute): 8 (5 minute): 9 Delayed Cord Clamping: Yes Post Vaginal Delivery Medications Given After Delivery: IV Pitocin Episiotomy Description: None Laceration: 1st degree Complication Complications: None
--- NOTE | 2021-11-30 20:30 | PCM.DC ---
Discharge Instructions Diet Discharge Diet: No restrictions Activity Discharge Activity: Return to Normal Activity, May Not Drive (while taking narcotic pain medications.) and May Shower May resume sexual activity in: 4-6 weeks Dressing / Incision Call your doctor if your incision/area has: Continuous Slow Oozing, Sudden Increased Bleeding, Increased Pain/ Swelling, Increased Redness and Foul Smelling Discharge Follow Up Care Please Follow Up With: Luana Boswell, When: Call [phone] to make an appointment with your doctor in 6 weeks. If you had elevated blood pressure or 4th degree laceration, you will need to be seen in 2 weeks. Test Results: Test results from this visit will be discussed in further detail at your follow-up appointment, if applicable. Discharge Plan Admission Admit Date/Time: 11/30/21 01:25 Primary Reason for Your Visit: vaginal delivery Attending Provider: Luana Boswell Primary Care Provider: Sheryl Friedman Discharge Orders/Prescriptions Prescriptions: New ibuprofen 800 mg tablet 800 mg PO Q8H PRN (Reason: pain) 7 Days Qty: 30 RF: 0 Continued prenat.vits,danelle,[id number] Tablet 1 tab PO DAILY RF: 0 Discontinued aspirin 81 mg Capsule 1 mg PO DAILY RF: 0 Referrals / Follow Up: Sheryl Freidman MD [Primary Care Provider] - Disposition Disposition (needs filled in before D/C Order can be placed): Home, Self Care
[2021-11-30] MEDS: Acetaminophen 500 MG Tablet 1000 MG PO (21:23)
[2021-11-30] MEDS: Ibuprofen 600 MG Tablet PO (21:58)
[2021-12-01 00:02] VITALS: BP 124/51; PULSE 78; RESP 15; TEMP 36.5
[2021-12-01 03:29] VITALS: BP 90/53; PULSE 90; RESP 18; TEMP 36.1
[2021-12-01] MEDS: Acetaminophen 500 MG Tablet 1000 MG PO (05:54)
[2021-12-01 09:23] VITALS: BP 110/48; PULSE 74; RESP 18; TEMP 36.3
--- NOTE | 2021-12-01 09:24 | PCM.PN.OB ---
Subjective Subjective Patient doing well without complaints. Tolerating PO. Ambulating and voiding without difficulty. Feeding well. Denies chest pain, shortness of breath, calf pain/swelling, fevers, chills, lightheadedness. Objective Data Objective Data Vital Signs: Vital Signs Temp Pulse Resp BP Pulse Ox 96.9 F L 90 18 90/53 L 97 12/01/21 03:29 12/01/21 03:29 12/01/21 03:29 12/01/21 03:29 11/30/21 21:20 Oxygen Delivery Method Room Air Weight: 225 lb 9.584 oz Body Mass Index (BMI) 38.5 Intake & Output: Intake and Output for Last 24 Hours 11/29/21 11/30/21 12/01/21 23:59 23:59 23:59 Intake Total 6642.77 / 6642.77 57 / 57 Output Total 675 / 675 900 / 900 Balance 5967.77 / 5967.77 -843 / -843 Lab / Micro Data Result Diagrams: 11/30/21 02:15 11/30/21 02:15 Labs: Laboratory Results - last 24 hr 11/30/21 13:00: U Random Total Protein 230.9 H, Urine Creatinine 132.00, Protein/Creatinin Ratio 1749 H Micro: Microbiology 11/30/21 02:15 Nasal Secretion SARS-CoV-2 Antigen (Rapid) - Final ROS Constitutional Constitutional: Denies chills, fatigue, fever(s), poor appetite or weakness Eyes Eyes: Denies blurry vision, change in vision, seeing flashes or spots in vision ENT HEENT: Denies dizziness, headache(s), loss taste/smell or sore throat Cardiovascular Cardiovascular: Denies chest pain, dizziness, dyspnea, irregular heart rhythm, palpitations or rapid heart rate Respiratory/Chest Respiratory/Chest: Denies chest tightness, cough, dyspnea or breast pain Gastrointestinal Gastrointestinal: Denies abdominal pain, constipation or vomiting Genitourinary Genitourinary: Denies dysuria or flank pain Musculoskeletal Musculoskeletal: Denies difficulty walking, joint pain, limited range of motion or numbness Neurologic Neurologic: Denies abnormal movements, abnormal speech, dizziness, numbness, seizure-like activity or syncope Psychiatric Psychiatric: Denies anxiety, behavioral changes, change in appetite, confusion, depression or suicidal thoughts Physical Exam Const alert, oriented x3 and no apparent distress General Appearance: cooperative and comfortable Resp normal respiratory effort Cardio regular rate GI normal to inspection, nondistended, normoactive bowel sounds GI Narrative: uterus is firm below umbilicus Palpation: soft Amniotic Fluid: other packing removed without difficulty. old blood noted only Back/Spine no CVA tenderness and thoraco-lumbar ROM normal Extremity normal to inspection, no clubbing, cyanosis or edema, no calf tenderness and no pedal edema Psych mental status grossly normal, thought process normal, cooperative, affect normal, speech normal, activity/motor behavior normal, denies homicidal ideation and denies suicidal ideation Assessment & Plan (1) Vacuum extractor delivery, delivered: COMMENT: JV- baby girl Sandy pt developed pre-eclampsia just prior to delivery (2) Depression: QUALIFIERS: Depression Type: dysthymia Qualified Code(s): F34.1 - Dysthymic disorder COMMENT: counseling started. didn't like wellbutrin. failed celexa in the past. May consider zoloft later intake with counselor done this week 09/22/21 (3) Supervision of normal first : QUALIFIERS: Trimester: third trimester Qualified Code(s): Z34.03 - Encounter for supervision of normal first , third trimester COMMENT: PRR TIM 11/27/21 girl Sandy BF: Go (4) : QUALIFIERS: Weeks of gestation: 39 weeks Qualified Code(s): Z3A.39 - 39 weeks gestation of COMMENT: declined afp, genetic and carrier screen. Anatomy US normal. GBS neg IOL set up for 12/04/21 at 7 pm (cytotec) (5) Anxiety: COMMENT: no meds/bad experience with med in past, started counseling. 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 routine post delivery care 2. breast feeding- support given 3. rh positive 4. rubella immune 5. plan for dc to home tomorrow
[2021-12-01] MEDS: Ibuprofen 600 MG Tablet PO ×2 (11:10→20:38)
[2021-12-01] MEDS: Senna/Docusate Sodium 1 Tablet PO (11:10)
[2021-12-01] MEDS: Prenatal Vits Tablet 1 TABLET PO (15:07)
[2021-12-01 15:12] VITALS: BP 116/71; PULSE 82; RESP 18; TEMP 36.3
--- NOTE | 2021-12-01 17:35 | NURSING ---
report receieved from faustino HAUSER. this RN to assume care of couplet at this time.
[2021-12-01 20:40] VITALS: BP 120/61; PULSE 73; RESP 16; TEMP 36.2
[2021-12-02 02:05] VITALS: BP 115/64; PULSE 70; RESP 14; TEMP 36.2
[2021-12-02] MEDS: Acetaminophen 500 MG Tablet 1000 MG PO (02:10)
[2021-12-02 08:09] VITALS: BP 124/85; PULSE 76; RESP 16; TEMP 36.1
--- NOTE | 2021-12-02 10:01 | PCM.PN.OB ---
Subjective Subjective Patient doing well without complaints. Tolerating PO. Ambulating and voiding without difficulty. Feeding well. Denies chest pain, shortness of breath, calf pain/swelling, fevers, chills, lightheadedness. Patient states that she wants to be discharge to home today if possible Objective Data Objective Data Vital Signs: Vital Signs Temp Pulse Resp BP Pulse Ox 97.0 F L 76 16 124/85 H 97 12/02/21 08:09 12/02/21 08:09 12/02/21 08:09 12/02/21 08:09 11/30/21 21:20 Oxygen Delivery Method Room Air Weight: 225 lb 9.584 oz Body Mass Index (BMI) 38.5 Intake & Output: Intake and Output for Last 24 Hours 11/30/21 12/01/21 12/02/21 23:59 23:59 23:59 Intake Total 6642.77 / 6642.77 57 / 57 Output Total 675 / 675 900 / 900 Balance 5967.77 / 5967.77 -843 / -843 Lab / Micro Data Result Diagrams: 11/30/21 02:15 11/30/21 02:15 Micro: Microbiology 11/30/21 02:15 Nasal Secretion SARS-CoV-2 Antigen (Rapid) - Final ROS Constitutional Constitutional: Denies chills, fatigue, fever(s), poor appetite or weakness Eyes Eyes: Denies blurry vision, change in vision, seeing flashes or spots in vision ENT HEENT: Denies dizziness, headache(s), loss taste/smell or sore throat Cardiovascular Cardiovascular: Denies chest pain, dizziness, dyspnea, irregular heart rhythm, palpitations or rapid heart rate Respiratory/Chest Respiratory/Chest: Denies chest tightness, cough, dyspnea or breast pain Gastrointestinal Gastrointestinal: Denies abdominal pain, constipation or vomiting Genitourinary Genitourinary: Denies dysuria or flank pain Musculoskeletal Musculoskeletal: Denies difficulty walking, joint pain, limited range of motion or numbness Neurologic Neurologic: Denies abnormal movements, abnormal speech, dizziness, numbness, seizure-like activity or syncope Psychiatric Psychiatric: Denies anxiety, behavioral changes, change in appetite, confusion, depression or suicidal thoughts Physical Exam Const alert, oriented x3 and no apparent distress General Appearance: cooperative and comfortable Resp normal respiratory effort Cardio regular rate GI normal to inspection, nondistended, normoactive bowel sounds GI Narrative: uterus is firm below umbilicus Palpation: soft Bimanual Exam - Adnexa, Other: Negative for cul-de-sac fullness Back/Spine no CVA tenderness and thoraco-lumbar ROM normal Extremity normal to inspection, no clubbing, cyanosis or edema, no calf tenderness and no pedal edema Psych mental status grossly normal, thought process normal, cooperative, affect normal, speech normal, activity/motor behavior normal, denies homicidal ideation and denies suicidal ideation Assessment & Plan (1) Vacuum extractor delivery, delivered: COMMENT: JV- baby girl Sandy pt developed pre-eclampsia just prior to delivery (2) Depression: QUALIFIERS: Depression Type: dysthymia Qualified Code(s): F34.1 - Dysthymic disorder COMMENT: counseling started. didn't like wellbutrin. failed celexa in the past. May consider zoloft later intake with counselor done this week 09/22/21 (3) Anxiety: COMMENT: no meds/bad experience with med in past, started counseling. 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 routine post delivery care 2. breast feeding- support given 3. rh positive 4. rubella immune 5. dc to home today
[2021-12-02] MEDS: Prenatal Vits Tablet 1 TABLET PO (11:01)
[2021-12-02] MEDS: Ibuprofen 600 MG Tablet PO (11:01)
[2021-12-02 15:03] VITALS: BP 127/81; RESP 16; TEMP 36.4
== END 2021-12-02 15:41 | disposition home or self-care (01) | DRG 560 ==
LOC: WPOUT 01:28 → WP 01:28
PROVIDERS: Admitting Provider Obstetrics & Gynecology; PCP Internal Medicine; Visit Provider Obstetrics & Gynecology
DX: O14.94 Unspecified pre-eclampsia, complicating childbirth (principal); Z37.0 Single live birth; O99.354 Diseases of the nervous system complicating childbirth; F34.1 Dysthymic disorder; O99.344 Other mental disorders complicating childbirth; G47.419 Narcolepsy without cataplexy; O70.0 First degree perineal laceration during delivery; Z79.82 Long term (current) use of aspirin; O76 Abnormality in fetal heart rate and rhythm complicating labor and delivery; Z3A.40 40 weeks gestation of pregnancy; Z86.16 Personal history of COVID-19
CPT/HCPCS: 59025; 59050; 82565; 82570; 84156; 84450; 84460; 84550; 85025; 86850; 86900; 86901; 87426; 99218; J7120; G0378; J2405

== ENCOUNTER 2021-12-24 09:11 | Emergency (ER) | payer MEDICAID, SELFPAY ==
[2021-12-24 09:13] VITALS: BP 134/79; PULSE 76; RESP 17; TEMP 36.1; O2SAT 100; BMI 31.4
--- NOTE | 2021-12-24 09:25 | CT_ITS ---
STUDY: CT ABDOMEN AND PELVIS WITHOUT CONTRAST REASON FOR EXAM: Female, 26 years old. Kidney Stone RADIATION DOSAGE (If Supplied By Facility): CTDIvol = ( 9.18 ) mGy, DLP = ( 460.96 ) mGycm TECHNIQUE: Transaxial images were obtained from the dome of the diaphragm to the symphysis pubis without oral contrast, and without intravenous contrast. Sagittal and coronal images were reconstructed. Individualized dose optimization techniques were used for this CT. COMPARISON: None. FINDINGS: 7 x 5.5 x 7.5 mm noncalcified nodule in the inferior lingula of left upper lobe. Possible second 7 x 5 mm nodule in the superior aspect of the right middle lobe, not fully included in the [id number]. 4 mm posterior medial right base nodule abutting the pleural surface and possible additional 3-4 mm nodule in the posterolateral right lower lobe are also seen on the first image. There is vertical linear scarring in the right middle lobe. The visualized portions of the heart are within normal limits. Borderline enlarged liver, the right lobe measuring 18 cm in height. Normal gallbladder and extrahepatic biliary system. The spleen is 13.2 x 10.65 x 4.55 cm Normal pancreas. Normal bilateral adrenal glands. Normal right kidney. Normal left kidney. There is mild left hydroureteronephrosis down to the pelvic inlet. The distal ureter is not well seen, but a 2.5 mm calcification/stone along the left posterior margin of the bladder may be at the ureterovesical junction. Normal visualized stomach. Normal small intestine. Normal colon. The appendix is visualized and appears normal. There are numerous nonspecific lymph nodes with less than 1 cm short axis diameter in the mesentery. Normal abdominal aorta. Normal inferior vena cava. Normal retroperitoneum. There are nonspecific lymph nodes in the inguinal tissues. Normal, but incompletely distended urinary bladder. The anteverted uterus is 10.85 x 6.5 x 8.5 cm. The adnexa are grossly unremarkable. Normal abdominal wall. Normal osseous structures. The patient is positioned with a 10 degree mid lumbar levoscoliosis. CT/Abdomen/Pelvis without Cont IMPRESSION: 1. Mild left hydroureteronephrosis, likely due to a 2.5 mm stone at the left ureterovesical junction. 2. Borderline to mild hepatosplenomegaly. 3. A number of noncalcified nodules are seen in the visualized lung bases. One might consider dedicated chest CT for more complete assessment of pulmonary nodules, and to exclude the presence of any other thoracic pathology. 4. Borderline to mildly enlarged uterus. The adnexa are unremarkable. Electronically Signed: Perez Mauricio MD at 10:11 EDT ,
--- NOTE | 2021-12-24 09:26 | EDS_ITS ---
HPI HPI - GI History of Present Illness Chief Complaint: Abd Pain Narrative Narrative: 26-year-old female presenting with left flank and left lower quadrant pain. This woke her up from sleep at about 7 AM. She describes it as sharp and aching. She is not had this pain before. She has associated symptoms of nausea without vomiting. Patient is and delivered about 3 weeks ago. She states she has had a little bit of spotting but this is mostly resolved. No vaginal complaints otherwise. No dysuria or hematuria. She states she has been having bowel movements regularly. No fevers. No history of kidney stones or diverticulitis. Patient has been otherwise well prior to this morning. PFSH PFS Medical History Acne Anxiety Lab test positive for detection of COVID-19 virus Narcolepsy Home Medications cefpodoxime 200 mg PO BID #10 tab 12/24/21 [Rx Last Taken Unknown] ibuprofen 600 mg PO Q8H PRN #20 tab 12/24/21 [Rx Last Taken Unknown] ondansetron 4 mg PO Q8H PRN #14 tab 12/24/21 [Rx Last Taken Unknown] Allergy/AdvReac Type Severity Reaction Status Date / Time No Known Allergies Allergy Verified 12/24/21 09:12 Family History Grandmother Diabetes Breast cancer Brother Diabetes type 1, controlled Mother Thyroid disorder Father CVA (cerebral vascular accident) DVT (deep venous thrombosis) Sister Cancer ALL Social History adopted: No household members: significant other current occupational status: employed current occupation: [employer] pets and animals: Yes (avoid litter box) pets and animals: cat(s) and dog(s) Smoking Status: Never smoker alcohol intake: current alcohol intake frequency: holidays/special occasions only details: not while substance use type: does not use caffeine: No what type of physical activity do you participate in: none seatbelt use: always do you feel safe at home: Yes additional social history: boyfriend Go-Works at [employer] ([employer]) ROS ROS ED Constitutional Constitutional ED: Denies chills or fever(s) ENT ENT ED: Denies rhinorrhea or sore throat Cardiovascular Cardiovascular: Denies palpitations Respiratory/Chest Respiratory/Chest: Denies cough or dyspnea Gastrointestinal Gastrointestinal: Reports abdominal pain and nausea; Denies constipation, diarrhea or vomiting Genitourinary Genitourinary ED: Denies dysuria or hematuria Musculoskeletal Musculoskeletal: Denies arthralgias or myalgias Integumentary Denies rash Neurologic Neurologic: Denies headache(s) or weakness Psychiatric Psychiatric: Denies anxiety or depression EXAM Physical Exam Const Vital Signs: 12/24/21 09:13 12/24/21 10:45 Temperature 96.9 F L Temperature Source Temporal Pulse Rate 76 55 L Respiratory Rate 17 16 Blood Pressure 134/79 H 120/107 H Blood Pressure Mean 97 Pulse Ox 100 100 Oxygen Delivery Method Room Air Positive well nourished General Appearance ED: NAD; Negative for pallor HEENT Reports moist mucous membranes normocephalic and atraumatic Eyes PERRL and EOMs intact bilaterally General Eye ED: Negative for pale conjunctiva or scleral icterus Resp normal respiratory effort and clear to auscultation bilaterally Cardio regular rate and regular rhythm GI non-distended Palpation: soft and tender LLQ Back/Spine General Back: CVA tenderness left Lumbar Spine / Lower Back: Negative for lumbar spinal tenderness Neuro Sensorium / Orientation: alert, oriented to person, oriented to place and oriented to time Psych mental status grossly normal and thought process normal Skin General Skin Exam: Negative for jaundice or pallor MDM MDM MDM Narrative Medical decision making narrative: 26-year-old female with left flank pain. No history of kidney stones. He is not having any urinary complaints. Patient about 3 weeks. No vaginal urinary complaints. No GI complaints. Due to acute onset pain in the left flank I did obtain blood work and her CBC and BMP are unremarkable. Urinalysis shows leukocyte esterase of 500, occult blood of 250, RBCs 10-25, WBCs 25-50 with 5-10 squamous epithelial cells and 2+ bacteria. This is likely contaminated from patient's current vaginal spotting as she just delivered 3 weeks ago. She states that this is improving. I did o btain a CT of the abdomen pelvis without contrast which does show a left UVJ stone of 2.5 mm. I will send the urine for culture. Discussed with the patient that likely this is contamination but with the kidney stone we would cover her with antibiotics as well. She does not want narcotics because she is breast- feeding. She is given Zofran and will take Tylenol and ibuprofen in alternating doses. She is given urology follow-up. I did note with her today that she had some pulmonary nodules on her CT which need follow-up outpatient with her primary care provider. Impression: 1. Left flank pain 2. 2.5 left UVJ stone 3. Hematuria 4. Pyelonephritis 5. Nausea 6. Pulmonary nodules Lab Data Attestation: I reviewed the patient's lab results. Labs: Laboratory Results - last 24 hr 12/24/21 12/24/21 12/24/21 09:35 09:35 09:55 WBC 5.4 RBC 4.71 Hgb 12.3 Hct 39.0 MCV 82.8 MCH 26.1 L MCHC 31.5 L RDW Std Deviation 42.8 RDW Coeff of Flavio 14.1 Plt Count 276 MPV 9.7 Immature Gran % (Auto) 0.200 Neut % (Auto) 56.1 Lymph % (Auto) 26.2 Wallace % (Auto) 7.1 Eos % (Auto) 9.5 H Baso % (Auto) 0.9 Absolute Neuts (auto) 3.0 Absolute Lymphs (auto) 1.40 Nucleated RBC % 0 Sodium 141 Potassium 4.0 Chloride 111 H Carbon Dioxide 26.0 Anion Gap 4 L BUN 19 H Creatinine 0.96 Estim Creat Clear Calc 79.21 Est GFR (MDRD) Af Amer 89 Est GFR (MDRD) Non-Af 74 BUN/Creatinine Ratio 19.7 Glucose 104 Calcium 8.9 Urine Color Yellow Urine Clarity Clear Urine pH 5.0 Ur Specific [place] 1.025 Urine Protein 30 H Urine Glucose (UA) Normal Urine Ketones Negative Urine Occult Blood 250 H Urine Nitrite Negative Urine Bilirubin Negative Urine Urobilinogen Normal Ur Leukocyte Esterase 500 H Urine RBC 10-25 SEEN Urine WBC 25-50 SEEN Ur Squamous Epith Cells 5-10 SEEN Urine Bacteria 2+ Urine Mucus 0 SEEN Radiography Diagnostic Testing: Clinical Impression(s) from Imaging Studies Abdomen/Pelvis CT 12/24/21 09:25 IMPRESSION: 1. Mild left hydroureteronephrosis, likely due to a 2.5 mm stone at the left ureterovesical junction. 2. Borderline to mild hepatosplenomegaly. 3. A number of noncalcified nodules are seen in the visualized lung bases. One might consider dedicated chest CT for more complete assessment of pulmonary nodules, and to exclude the presence of any other thoracic pathology. 4. Borderline to mildly enlarged uterus. The adnexa are unremarkable. Electronically Signed: Perez Mauricio MD at 10:11 EDT , Discharge Plan Triage Chief Complaint: Abd Pain ED Provider: Daniel Thomas Dx/Rx/DC Orders Instructions: ED Pulmonary Nodule, Solitary, ED CYSTITIS Female Adult, ED Kidney Stone w/ Colic Prescriptions: New ondansetron 4 mg tablet,disintegrating 4 mg PO Q8H PRN (Reason: nausea and vomiting) Qty: 14 RF: 0 ibuprofen 600 mg tablet 600 mg PO Q8H PRN (Reason: pain) Qty: 20 RF: 0 cefpodoxime 200 mg tablet 200 mg PO BID Qty: 10 RF: 0 Primary Care Provider: Sheryl Friedman Referrals: Sheryl Friedman MD [Primary Care Provider] - Sydnie Doshi MD [STAFF PHYSICIAN] - As soon as possible Disposition Disposition: Home, Self Care Discharge Date/Time: 12/24/21 10:46
[2021-12-24] MEDS: Ketorolac 15 MG/ML Vial IV (09:33)
[2021-12-24] MEDS: Ondansetron 4 MG/2 ML Vial IV (09:33)
[2021-12-24 09:42] LABS: Basophil# 0.05 X10^3/uL; Basophil% 0.9 % (0-1); Eosinophil# 0.51 X10^3/uL; Eosinophils% 9.5 % (0-5); Hemoglobin 12.3 g/dL (12.0-15.0); Lymphocyte % 26.2 % (19-41); Mean Corp Hgb Conc 31.5 g/dL (32-36); Mean Corpuscular Hgb 26.1 pg (27.0-32.0); Mean Corpuscular Volume 82.8 fL (81-99); Mean Platelet Vol. 9.7 fl (6.2-12.0); Monocyte# 0.38 X10^3/uL; Monocyte% 7.1 % (0-10); NRBC Flagged by Analyzer 0 % (0-5); Neutrophil % 56.1 % (47-70); Platelet Count 276 K/mm3 (150-450); RBC Distribution Width CV 14.1 % (11.6-14.6); RBC Distribution Width SD 42.8 fl (35.1-43.9); Red Blood Count 4.71 M/mm3 (4.2-5.4); White Blood Count 5.4 K/mm3 (4.4-11.0)
[2021-12-24 09:53] LABS: Anion Gap 4 (5-15); BUN 19 mg/dL (7-18); BUN/Creat Ratio 19.7 RATIO (10-20); Calcium,Total 8.9 mg/dL (8.5-10.1); Chloride 111 mmol/L (98-107); Creatinine, Serum 0.96 mg/dL (0.55-1.02); EST Glomerular Filtration Rate 74 mL/min (>60); Est Glom Filt Rate - Afr Amer 89 mL/min (>60); Estimated Creatinine Clearance 79.21 ml/min; Glucose 104 mg/dL (74-106); Sodium Level 141 mmol/L (136-145)
[2021-12-24 09:58] LABS: Mucous, Urine 0 SEEN /hpf (<or=2+)
[2021-12-24 10:02] LABS: Color, Urine Yellow (Yellow); Glucose, Dipstick Normal (Normal); Ketone-Dipstick Negative (Negative); Leukocyte Esterase-Dipstick 500 /ul (Negative); Nitrite-Dipstick Negative (Negative); Occult Blood-Urine 250 /ul (Negative); Protein-Dipstick 30 mg/dl (Negative); Specific Gravity, Urine 1.025 (1.002-1.030); Urine Bilirubin Dipstick Negative (Negative); Urine Clarity Clear (Clear); Urine Urobilinogen Normal (Normal)
[2021-12-24 10:09] LABS: Red Blood Cells-Urine 10-25 SEEN /hpf (0-5); White Blood Cells 25-50 SEEN /hpf (0-5)
[2021-12-24 10:10] LABS: Bacteria 2+ /hpf (None Seen); Squamous Epithelial Cells - UA 5-10 SEEN /hpf (5-10)
[2021-12-24 10:45] VITALS: BP 120/107; PULSE 55; RESP 16; O2SAT 100
== END 2021-12-24 10:46 | disposition home or self-care (01) ==
PROVIDERS: Emergency Provider Student in an Organized Health Care Education/Training Program; PCP Internal Medicine; Visit Provider Student in an Organized Health Care Education/Training Program
DX: R10.9 Unspecified abdominal pain (principal); N20.1 Calculus of ureter; R31.9 Hematuria, unspecified; N12 Tubulo-interstitial nephritis, not specified as acute or chronic; R91.1 Solitary pulmonary nodule; R11.0 Nausea; Z86.16 Personal history of COVID-19
CPT/HCPCS: 74176; 80048; 81001; 85025; 87086; 87088; 87186; 96374; 96375; 99283; A4216; J2405

== ENCOUNTER → 2022-01-09 | Outpatient (CLI) | payer MEDICAID, SELFPAY ==
--- NOTE | 2022-01-09 14:56 | US_ITS ---
RENAL ULTRASOUND CLINICAL HISTORY: LEFT KIDNEY STONE. TECHNIQUE: Monae scale and limited color imaging of the kidneys, bladder, inferior vena cava, and aorta. COMPARISON: None FINDINGS: The right kidney measures 10.8 cm. The echogenicity is normal. There is no hydronephrosis or perinephric collection. There is no focal renal mass or calculus seen. The left kidney measures 10.7 cm. The echogenicity is normal. There is no hydronephrosis or perinephric collection. There is no focal renal mass or calculus seen. Bladder is within normal limits. Prevoid bladder volume = 144 cc. Bilateral ureteral jets visualized. Incidentally noted prominent spleen measuring 12.5 cm. US/Kidney and Bladder IMPRESSION: No hydronephrosis. Electronically Signed: Werner Samson MD at 7:39 EDT ,
== END | disposition home or self-care (01) ==
LOC: US 14:52
PROVIDERS: PCP Internal Medicine; Visit Provider Urology
DX: N20.0 Calculus of kidney (principal)
CPT/HCPCS: 76770

== ENCOUNTER → 2022-01-16 | Outpatient (CLI) | payer MEDICAID, SELFPAY ==
[2022-01-23 16:31] LABS: HPV Reflexed? NOT INDICATED
== END | disposition home or self-care (01) ==
LOC: LABSPEC 10:17
PROVIDERS: PCP Internal Medicine; Visit Provider Obstetrics & Gynecology
DX: Z12.4 Encounter for screening for malignant neoplasm of cervix (principal)
CPT/HCPCS: 88175; G0145

== ENCOUNTER → 2022-08-13 | Outpatient (CLI) | payer BC, MEDICAID, SELFPAY ==
--- NOTE | 2022-08-13 14:04 | US_ITS ---
STUDY: ULTRASOUND BREAST - RIGHT REASON FOR EXAM: Female, 26 years old. Pain in the right breast. TECHNIQUE: Axial and longitudinal images of the RIGHT breast were performed with a high resolution ultrasound transducer. # OF IMAGES: 82 COMPARISON: None. FINDINGS: RIGHT Breast: The upper outer quadrant of the right breast was examined by ultrasound. There is evidence of dilated ducts. No focal mass or abscess is seen. IMPRESSION: Dilated ducts are seen in the upper lateral aspect of the right breast ASSESSMENT CATEGORY: BIRADS Category 2: Benign. A letter regarding these results will be sent to the patient by the facility within 30 days. Electronically Signed: Pedrito Mcdonald MD at 10:39 EST , STUDY: ULTRASOUND BREAST - LEFT REASON FOR EXAM: Female, 26 years old. Possible mastitis. There is erythema of the upper inner quadrant of the left breast. TECHNIQUE: Axial and longitudinal images of the LEFT breast were performed with a high resolution ultrasound transducer. # OF IMAGES: 82 COMPARISON: None. FINDINGS: LEFT Breast: The upper inner quadrant of the left breast was examined with ultrasound. There is evidence of a dilated ducts. No evidence of a fluid collection or abscess. US/Breast Limited Unilateral IMPRESSION: Dilated ducts. ASSESSMENT CATEGORY: BIRADS Category 2: Benign. A letter regarding these results will be sent to the patient by the facility within 30 days. Electronically Signed: Pedrito Mcdonald MD at 10:40 EST ,
== END | disposition home or self-care (01) ==
LOC: OPBI 14:01
PROVIDERS: PCP Internal Medicine; Visit Provider Nurse Practitioner Family
DX: N61.0 Mastitis without abscess (principal)
CPT/HCPCS: 76642

== ENCOUNTER → 2023-08-15 | Outpatient (CLI) | payer BC, SELFPAY ==
[2023-08-15 14:04] LABS: Absolute Neutrophil Count 4.3 X10^3/uL (2.0-7.7); Basophil# 0.06 X10^3/uL; Basophil% 0.8 % (0-1); Eosinophil# 0.12 X10^3/uL; Eosinophils% 1.7 % (0-5); Hematocrit 40.8 % (37-47); Hemoglobin 13.2 g/dL (12.0-15.0); Lymphocyte % 27.7 % (19-41); Mean Corp Hgb Conc 32.4 g/dL (32-36); Mean Corpuscular Hgb 28.3 pg (27.0-32.0); Mean Corpuscular Volume 87.4 fL (81-99); Mean Platelet Vol. 9.7 fl (6.2-12.0); Monocyte# 0.68 X10^3/uL; Monocyte% 9.4 % (0-10); NRBC Flagged by Analyzer 0 % (0-5); Neutrophil # 4.34 X10^3/uL (2.7-7.7); Neutrophil % 60.1 % (47-70); Platelet Count 297 K/mm3 (150-450); RBC Distribution Width CV 12.1 % (11.6-14.6); RBC Distribution Width SD 38.6 fl (35.1-43.9); Red Blood Count 4.67 M/mm3 (4.2-5.4); White Blood Count 7.2 K/mm3 (4.4-11.0)
[2023-08-15 15:26] LABS: HIV - WCH Non-Reactive (Nonreactive); Hepatitis B Surface Antigen Non-Reactive (Nonreactive); Hepatitis C Antibody Non-Reactive (Nonreactive); Rubella IgG Reactive (Nonreactive); Syphilis Antibodies Non-reactive
[2023-08-20 00:06] LABS: Chlamydia By Nucleic Acid AMP Negative (Negative); Gonococcus By Nucleic Acid AMP Negative (Negative)
== END | disposition home or self-care (01) ==
PROVIDERS: PCP Internal Medicine; Referring Provider Advanced Practice Midwife; Visit Provider Advanced Practice Midwife
DX: Z34.90 Encounter for supervision of normal pregnancy, unspecified, unspecified trimester (principal)
CPT/HCPCS: 36415; 85025; 86703; 86762; 86780; 86803; 86850; 86900; 86901; 87086; 87088; 87340; 87491; 87591

== ENCOUNTER → 2023-12-30 | Outpatient (CLI) | payer BC, SELFPAY ==
[2023-12-30 08:50] LABS: Absolute Lymphocyte Count 1.53 X10^3/uL (0.83-4.51); Absolute Neutrophil Count 4.9 X10^3/uL (2.0-7.7); Basophil# 0.03 X10^3/uL; Basophil% 0.4 % (0-1); Eosinophil# 0.11 X10^3/uL; Eosinophils% 1.5 % (0-5); Hematocrit 37.9 % (37-47); Hemoglobin 12.7 g/dL (12.0-15.0); Lymphocyte # 1.53 X10^3/ul (0.83-4.51); Lymphocyte % 21.4 % (19-41); Mean Corp Hgb Conc 33.5 g/dL (32-36); Mean Corpuscular Hgb 30.4 pg (27.0-32.0); Mean Corpuscular Volume 90.7 fL (81-99); Mean Platelet Vol. 9.1 fl (6.2-12.0); NRBC Flagged by Analyzer 0 % (0-5); Neutrophil # 4.93 X10^3/uL (2.7-7.7); Neutrophil % 68.9 % (47-70); Platelet Count 233 K/mm3 (150-450); RBC Distribution Width CV 13.1 % (11.6-14.6); RBC Distribution Width SD 43.1 fl (35.1-43.9); Red Blood Count 4.18 M/mm3 (4.2-5.4); White Blood Count 7.2 K/mm3 (4.4-11.0)
[2023-12-30 09:34] LABS: Glucose Challenge Gest 1H 50g 114 mg/dL (70-140)
[2023-12-30 09:51] LABS: HIV - WCH Non-Reactive (Nonreactive); Syphilis Antibodies Non-reactive
== END | disposition home or self-care (01) ==
LOC: PAVLAB 08:39
PROVIDERS: PCP Internal Medicine; Referring Provider Registered Nurse; Visit Provider Registered Nurse
DX: Z34.90 Encounter for supervision of normal pregnancy, unspecified, unspecified trimester (principal)
CPT/HCPCS: 36415; 82950; 85025; 86703; 86780

== ENCOUNTER → 2024-02-24 | Outpatient (CLI) | payer BC, SELFPAY | END | disposition home or self-care (01) | LOC: LABSPEC 15:17 | PROVIDERS: PCP Internal Medicine; Referring Provider Obstetrics & Gynecology; Visit Provider Obstetrics & Gynecology | DX: O09.93 Supervision of high risk pregnancy, unspecified, third trimester (principal); Z3A.00 Weeks of gestation of pregnancy not specified | CPT/HCPCS: 87081 ==

== ENCOUNTER 2024-03-24 15:03 | Outpatient (CLI) | payer BC, SELFPAY ==
[2024-03-24 15:33] VITALS: BP 127/73; PULSE 80; RESP 16; TEMP 36.8
[2024-03-24 15:34] VITALS: PULSE 78; O2SAT 97
[2024-03-24 15:38] VITALS: BMI 35.4
[2024-03-24 15:39] VITALS: PULSE 76; O2SAT 97
[2024-03-24 16:17] LABS: ROM Internal Control Test YES-OK TO RESULT pt. (Internal QC); ROM Patient Test Negative (Negative); Record Kit Lot#, ROM+ K1866
--- NOTE | 2024-03-24 16:32 | OB.TRI.HP_ITS ---
HPI - General HPI Narrative SILVESTRE MELENDREZ, is a 28 y/o @ 40 weeks who presents to L&D to rule out ROM. She was found to be 2-3 cm dilated in office and having irregular contractions. Maternal Data Information TIM Calculator Estimated Delivery Date Method Current WG Current Estimate 03/23/24 LMP (Certain) 40w 1d PFSH PFSH Medical History Contraception management Mastitis Vacuum extractor delivery, delivered Anxiety Lab test positive for detection of COVID-19 virus Anxiety Narcolepsy Acne Depression Home Medications ?Medication ?Instructions ?Recorded ?Last Taken ?Type multivit-min no.71-iron fum 28 cap PO 08/06/23 03/24/24 10:00 History mg-folate no.1 1 mg-dha 300 mg 1 cap capsule (PNV-[place]) ondansetron HCl 4 mg tablet 4 mg PO Q6H PRN nausea and 08/27/23 Unknown Rx vomiting #30 tabs famotidine 20 mg tablet (Pepcid) 20 mg PO BID #60 tabs 01/13/24 03/24/24 10:00 Rx 20 mg loratadine 10 mg tablet (Allergy 10 mg PO DAILY 03/24/24 03/23/24 22:00 History Relief (loratadine)) 10 mg Allergy/AdvReac Type Severity Reaction Status Date / Time No Known Allergies Allergy Verified 03/24/24 15:35 Family History Grandmother Diabetes Breast cancer, Onset Age: 80 maternal Brother Diabetes type 1, controlled Mother Thyroid disorder Father CVA (cerebral vascular accident) DVT (deep venous thrombosis) Sister Cancer ALL Grandmother Breast cancer, Onset Age: 70 Paternal Surgical History [place] teeth extracted Social History adopted: No household members: spouse and children number of children: 1 current occupational status: 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) pets and animals: cat(s) and dog(s) history of recent travel: No sexually active: Yes Smoking Status: Never smoker alcohol intake: current alcohol intake frequency: holidays/special occasions only details: not while substance use type: does not use well-balanced diet: daily or most days caffeine: Yes Type: coffee Number of servings: 1 eating out: rarely or never during the past year weight has: remained stable what type of physical activity do you participate in: other details: planks frequency: 1-2 times per week duration: < 15 minutes/day chris/alevism: Non-Adventist/Independent seatbelt use: always do you feel safe at home: Yes additional social history: Go- [employer] History 2 Elective abortions Hx Para 1 Spontaneous abortions Hx # Term Pregnancies Ectopic pregnancies Hx # Pregnancies Multiple births # of living children 1 Past Pregnancies Del. Date Name GA/Weeks Outcome Route Bth Weight Infant Gen Labor Lgth Anesthesia Del Locatn Provider FOB Unknown 2021 [place] live - full term vacuum Female epidural WC JV Go Delivery Date: Last Updated by: Caitie Garcia vacuum delivery Visit Details Expected Delivery Route/Plan Labor Preferences- CB/BF classes: no labor support person: Go labor intervention preferences: [] pain management options preferred: no epidural. Limited. cut cord/dad catch: cord : yes PP control planned: discussed discussed possible routes of delivery and associated risks: [] special requests: [] Plans Covid status: discussed Flu vaccine: given Tdap vaccine: given 12/30/23 Rhogam: NA LARC form signed: yes Problem list reviewed and updated with the most current plan of care details and appropriate orders placed. Relevant counseling for the gestational age provided. Continue routine care and follow up unless otherwise noted in visit notes/problem list details OB Flowsheet Initial Weight: Not Recorded Date -?-?-?-?-?-?-?-?-?-?-?-?- EGA Weight BP Urine Prot -?-?-?-?-?-?-?-?-?-?-?-?- Glucose FHR FuHt Pres Dilation -?-?-?-?-?-?-?-?-?-?-?-?- Effaced St Visit Note 08/15/23 -?-?-?-?-?-?-?-?-?-?-?-?- 8w 3d 182 lb 4 oz 110/74 -?-?-?-?-?-?-?-?-?-?-?-?- 175 -?-?-?--?-?-?-?-?-?-?-?-?- KW- CRL 20mm & c ons with dates. no concerns today and declines NIPT 09/11/23 -?-?-?-?-?-?-?-?-?-?-?-?- 12w 2d 180 lb 8 oz 121/72 Nega tive -?-?-?-?-?-?-?-?-?-?-?-?- Negative 145 -?-?-?-?-?-?-?-?-?-?-?-?- JV- no lof, cram ping, or bleeding. normal first trimester labs. 10/08/23 -?-?-?-?-?-?-?-?-?-?-?-?- 16w 1d 182 lb 6 oz 118/70 Nega tive -?-?-?-?-?-?-?-?-?-?-?-?- Negative 154 -?-?-?-?-?-?-?-?-?-?-?-?- MH-NO VB. Nausea resolved. [facility] US 10/21. Denies concerns 11/05/23 -?-?-?-?-?-?-?-?-?-?-?-?- 20w 1d 184 lb 126/67 Negative -?-?-?-?-?-?-?-?-?-?-?-?- Negative 152 -?-?-?-?-?-?-?-?-?-?-?-?- MH-No VB. Feelin g movement. [facility] US was 10/21:will get results. States rpt US is 11/20 placental issue. 12/02/23 -?-?-?-?-?-?-?-?-?-?-?-?- 24w 0d 189 lb 4 oz 118/64 Nega tive -?-?-?-?-?-?-?-?-?-?-?-?- Negative 148 -?-?-?-?-?-?-?-?-?-?-?-?- LC- no vb/ctx/lo f. good fm. LC- no vb/ctx/lof. good fm.[facility]- q4 weeks growths 12/30/23 -?-?-?-?-?-?-?-?-?-?-?-?- 28w 0d 195 lb 4 oz 112/66 Nega tive -?-?-?-?-?-?-?-?-?-?-?-?- Negative 156 28 -?-?-?-?-?-?-?-?-?-?-?-?- MH-No VB, LOF. G ood FM. tdap. 28 wk labs pending. Next US MFM /01/13/24 -?-?-?-?-?-?-?-?-?-?-?-?- 30w 0d 201 lb 8 oz 120/83 Nega tive -?-?-?-?-?-?-?-?-?-?-?-?- Negative 144 32 -?-?-?-?-?-?-?-?-?-?-?-?- JV- no lof, vagi nal bleeding, or dec fm. getting monthly ultrasounds 01/28/24 -?-?-?-?-?-?-?-?-?-?-?-?- 32w 1d 202 lb 114/74 Negative -?-?-?-?-?-?-?-?-?-?-?-?- Negative 146 33 -?-?-?-?-?-?-?-?-?-?-?-?- KW- no vb/lof/ct x. good fm. no concerns today 02/12/24 -?-?-?-?-?-?-?-?-?-?-?-?- 34w 2d 208 lb 6 oz 125/79 Nega tive -?-?-?-?-?-?-?-?-?-?-?-?- Negative 145 34.5 -?-?-?-?-?-?-?-?-?-?-?-?- JV- no lof, vagi nal bleeding, or dec fm. indigestion is sever. starting carafate and omeprazole as needed. 02/24/24 -?-?-?-?-?-?-?-?-?-?-?-?- 36w 0d 207 lb 113/75 Negative -?-?-?-?-?-?-?-?-?-?-?-?- Negative 130 36 Cephalic -?-?-?-?-?-?-?-?-?-?-?-?- .5 SM- no v b lof good fm no regular ctx gbs 03/03/24 -?-?-?-?-?-?-?-?-?-?-?-?- 37w 1d 210 lb 121/76 Negative -?-?-?-?-?-?-?-?-?-?-?-?- Negative 145 37 Cephalic -?-?-?-?-?-?-?-?-?-?-?-?- JV- patient decl austyn pelvic exam. no lof, vaginal bleeding, or dec fm. GBS neg. has growth scan next week 03/10/24 -?-?-?-?-?-?-?-?-?-?-?-?- 38w 1d 211 lb 112/78 Negative -?-?-?-?-?-?-?-?-?-?-?-?- Negative 140 38 Cephalic 0 .5 -?-?-?-?-?-?-?-?-?-?-?-?- SM- no vb lof go od fm no regular ctx 03/20/24 -?-?-?-?-?-?-?-?-?-?-?-?- 39w 4d 213 lb 4 oz 123/81 Nega tive -?-?-?-?-?-?-?-?-?-?-?-?- Negative 140 40 Cephalic 0 .5 -?-?-?-?-?-?-?-?-?-?-?-?- SM- no vb lof go od fm n oreuglar ctx 03/24/24 -?-?-?-?-?-?-?-?-?-?-?-?- 40w 1d 213 lb 113/76 Negative -?-?-?-?-?-?-?-?-?-?-?-?- Negative 140 40 Cephalic 2 .5 -?-?-?-?-?-?-?-?-?-?-?-?- SM questionable LOF since 245 no vb good fm ctx q 10 min ROS Constitutional Constitutional: Reports systems reviewed and no addt'l complaints, except as documented Gastrointestinal Gastrointestinal: Denies bloating, constipation, cramping, diarrhea, nausea or vomiting Genitourinary Genitourinary: Reports other Details: Denies vaginal odor, vaginal bleeding, or vaginal discharge ; Denies difficulty urinating or flank pain Physical Exam HEENT normocephalic Resp normal respiratory effort and normal air movement no CVA tenderness Manual OB Exam: dilated 3, effaced 70, station -3 and other posterior Amniotic Fluid: no amniotic fluid noted and ROM+plus negative - Extremity normal to inspection General Extremity: edema bilateral (trace ) NST FHR Rate Baby A Baseline: 140 Variability:: Moderate Accelerations:: 15 x 15 Decelerations:: None NST Reactive:: Yes FHR Category:: Category I Assessment & Plan (1) False labor: PLAN: Rom plus is negative and patient wishes to be discharged to home for now and plans to return when contractions get stronger. 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
--- NOTE | 2024-03-24 16:32 | OB.TRI.NOTE ---
HPI - General HPI Narrative SILVESTRE MELENDREZ, is a 28 y/o @ 40 weeks who presents to L&D to rule out ROM. She was found to be 2-3 cm dilated in office and having irregular contractions. Maternal Data Information TIM Calculator Estimated Delivery Date Method Current WG Current Estimate 03/23/24 LMP (Certain) 40w 1d PFSH PFSH Medical History Contraception management Mastitis Vacuum extractor delivery, delivered Anxiety Lab test positive for detection of COVID-19 virus Anxiety Narcolepsy Acne Depression Home Medications ?Medication ?Instructions ?Recorded ?Last Taken ?Type multivit-min no.71-iron fum 28 cap PO 08/06/23 03/24/24 10:00 History mg-folate no.1 1 mg-dha 300 mg 1 cap capsule (PNV-[place]) ondansetron HCl 4 mg tablet 4 mg PO Q6H PRN nausea and 08/27/23 Unknown Rx vomiting #30 tabs famotidine 20 mg tablet (Pepcid) 20 mg PO BID #60 tabs 01/13/24 03/24/24 10:00 Rx 20 mg loratadine 10 mg tablet (Allergy 10 mg PO DAILY 03/24/24 03/23/24 22:00 History Relief (loratadine)) 10 mg Allergy/AdvReac Type Severity Reaction Status Date / Time No Known Allergies Allergy Verified 03/24/24 15:35 Family History Grandmother Diabetes Breast cancer, Onset Age: 80 maternal Brother Diabetes type 1, controlled Mother Thyroid disorder Father CVA (cerebral vascular accident) DVT (deep venous thrombosis) Sister Cancer ALL Grandmother Breast cancer, Onset Age: 70 Paternal Surgical History [place] teeth extracted Social History adopted: No household members: spouse and children number of children: 1 current occupational status: 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) pets and animals: cat(s) and dog(s) history of recent travel: No sexually active: Yes Smoking Status: Never smoker alcohol intake: current alcohol intake frequency: holidays/special occasions only details: not while substance use type: does not use well-balanced diet: daily or most days caffeine: Yes Type: coffee Number of servings: 1 eating out: rarely or never during the past year weight has: remained stable what type of physical activity do you participate in: other details: planks frequency: 1-2 times per week duration: < 15 minutes/day chris/restorationism: Non-Advent/Independent seatbelt use: always do you feel safe at home: Yes additional social history: Go- [employer] History 2 Elective abortions Hx Para 1 Spontaneous abortions Hx # Term Pregnancies Ectopic pregnancies Hx # Pregnancies Multiple births # of living children 1 Past Pregnancies Del. Date Name GA/Weeks Outcome Route Bth Weight Infant Gen Labor Lgth Anesthesia Del Locatn Provider FOB Unknown 2021 [place] live - full term vacuum Female epidural [facility] JV Go Delivery Date: Last Updated by: Caitie Garcia vacuum delivery Visit Details Expected Delivery Route/Plan Labor Preferences- CB/BF classes: no labor support person: Go labor intervention preferences: [] pain management options preferred: no epidural. Limited. cut cord/dad catch: cord : yes PP control planned: discussed discussed possible routes of delivery and associated risks: [] special requests: [] Plans Covid status: discussed Flu vaccine: given Tdap vaccine: given 12/30/23 Rhogam: NA LARC form signed: yes Problem list reviewed and updated with the most current plan of care details and appropriate orders placed. Relevant counseling for the gestational age provided. Continue routine care and follow up unless otherwise noted in visit notes/problem list details OB Flowsheet Initial Weight: Not Recorded Date <del>?</del> EGA Weight BP Urine Prot <del>?</del> Glucose FHR FuHt Pres Dilation <del>?</del> Effaced St Visit Note 08/15/23 <del>?</del> 8w 3d 182 lb 4 oz 110/74 <del>?</del> 175 <del>?</del> KW- CRL 20mm & cons with dates. no concerns today and declines NIPT 09/11/23 <del>?</del> 12w 2d 180 lb 8 oz 121/72 Negative <del>?</del> Negative 145 <del>?</del> JV- no lof, cramping, or bleeding. normal first trimester labs. 10/08/23 <del>?</del> 16w 1d 182 lb 6 oz 118/70 Negative <del>?</del> Negative 154 <del>?</del> MH-NO VB. Nausea resolved. MFM US 10/21. Denies concerns 11/05/23 <del>?</del> 20w 1d 184 lb 126/67 Negative <del>?</del> Negative 152 <del>?</del> MH-No VB. Feeling movement. [facility] US was 10/21:will get results. States [facility] US is 11/20 placental issue. 12/02/23 <del>?</del> 24w 0d 189 lb 4 oz 118/64 Negative <del>?</del> Negative 148 <del>?</del> LC- no vb/ctx/lof. good fm. LC- no vb/ctx/lof. good fm.placenta [place]- q4 weeks growths 12/30/23 <del>?</del> 28w 0d 195 lb 4 oz 112/66 Negative <del>?</del> Negative 156 28 <del>?</del> MH-No VB, LOF. Good FM. tdap. 28 wk labs pending. Next US MFM 5/2 01/13/24 <del>?</del> 30w 0d 201 lb 8 oz 120/83 Negative <del>?</del> Negative 144 32 <del>?</del> JV- no lof, vaginal bleeding, or dec fm. getting monthly ultrasounds 01/28/24 <del>?</del> 32w 1d 202 lb 114/74 Negative <del>?</del> Negative 146 33 <del>?</del> KW- no vb/lof/ctx. good fm. no concerns today 02/12/24 <del>?</del> 34w 2d 208 lb 6 oz 125/79 Negative <del>?</del> Negative 145 34.5 <del>?</del> JV- no lof, vaginal bleeding, or dec fm. indigestion is sever. starting carafate and omeprazole as needed. 02/24/24 <del>?</del> 36w 0d 207 lb 113/75 Negative <del>?</del> Negative 130 36 Cephalic <del>?</del> .5 SM- no vb lof good fm no regular ctx gbs 03/03/24 <del>?</del> 37w 1d 210 lb 121/76 Negative <del>?</del> Negative 145 37 Cephalic <del>?</del> JV- patient declines pelvic exam. no lof, vaginal bleeding, or dec fm. GBS neg. has growth scan next week 03/10/24 <del>?</del> 38w 1d 211 lb 112/78 Negative <del>?</del> Negative 140 38 Cephalic 0.5 <del>?</del> SM- no vb lof good fm no regular ctx 03/20/24 <del>?</del> 39w 4d 213 lb 4 oz 123/81 Negative <del>?</del> Negative 140 40 Cephalic 0.5 <del>?</del> SM- no vb lof good fm n oreuglar ctx 03/24/24 <del>?</del> 40w 1d 213 lb 113/76 Negative <del>?</del> Negative 140 40 Cephalic 2.5 <del>?</del> SM questionable LOF since 245 no vb good fm ctx q 10 min ROS Constitutional Constitutional: Reports systems reviewed and no addt'l complaints, except as documented Gastrointestinal Gastrointestinal: Denies bloating, constipation, cramping, diarrhea, nausea or vomiting Genitourinary Genitourinary: Reports other Details: Denies vaginal odor, vaginal bleeding, or vaginal discharge ; Denies difficulty urinating or flank pain Physical Exam HEENT normocephalic Resp normal respiratory effort and normal air movement no CVA tenderness Manual OB Exam: dilated 3, effaced 70, station -3 and other posterior Amniotic Fluid: no amniotic fluid noted and ROM+plus negative - Extremity normal to inspection General Extremity: edema bilateral (trace ) NST FHR Rate Baby A Baseline: 140 Variability:: Moderate Accelerations:: 15 x 15 Decelerations:: None NST Reactive:: Yes FHR Category:: Category I Assessment & Plan (1) False labor: PLAN: Rom plus is negative and patient wishes to be discharged to home for now and plans to return when contractions get stronger. 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
== END 2024-03-24 16:38 | disposition home or self-care (01) ==
LOC: WPOUT 15:04 → WP 15:05
PROVIDERS: PCP Internal Medicine; Referring Provider Obstetrics & Gynecology; Visit Provider Obstetrics & Gynecology
DX: O47.1 False labor at or after 37 completed weeks of gestation (principal); O09.93 Supervision of high risk pregnancy, unspecified, third trimester; Z3A.40 40 weeks gestation of pregnancy
CPT/HCPCS: 59025; 59050; 84112; 99221; G0378

== ENCOUNTER 2024-03-25 08:07 | Inpatient (IN) | payer BC, SELFPAY ==
[2024-03-25] VITALS (22 sets, daily range): BP systolic 93–162; BP diastolic 58–93; PULSE 65–93; RESP 16; TEMP 36.1–36.5; O2SAT 87–100; BMI 35.2
[2024-03-25] MEDS: Lactated Ringers 1,000 ML 50 ML IV (05:48)
[2024-03-25 06:05] LABS: Basophil# 0.03 X10^3/uL; Basophil% 0.3 % (0-1); Eosinophil# 0.18 X10^3/uL; Eosinophils% 1.6 % (0-5); Hematocrit 41.7 % (37-47); Hemoglobin 13.8 g/dL (12.0-15.0); Lymphocyte % 18.6 % (19-41); Mean Corp Hgb Conc 33.1 g/dL (32-36); Mean Corpuscular Hgb 29.5 pg (27.0-32.0); Mean Corpuscular Volume 89.1 fL (81-99); Mean Platelet Vol. 10.1 fl (6.2-12.0); Monocyte# 0.96 X10^3/uL; Monocyte% 8.5 % (0-10); NRBC Flagged by Analyzer 0 % (0-5); Neutrophil # 7.98 X10^3/uL (2.7-7.7); Neutrophil % 70.4 % (47-70); Platelet Count 237 K/mm3 (150-450); RBC Distribution Width CV 13.2 % (11.6-14.6); RBC Distribution Width SD 42.6 fl (35.1-43.9); Red Blood Count 4.68 M/mm3 (4.2-5.4); White Blood Count 11.3 K/mm3 (4.4-11.0)
[2024-03-25] MEDS: Oxytocin 15 Units/NS 250ml 15 UNITS/250 ML IV.SOLN 334 UNITS IV (07:20)
[2024-03-25 07:31] LABS: Syphilis Antibodies Non-reactive
--- NOTE | 2024-03-25 08:12 | DCINST_ITS ---
Discharge Instructions Follow Up Care Test Results: Test results from this visit will be discussed in further detail at your follow- up appointment, if applicable. Discharge Plan Admission Admit Date/Time: 03/25/24 05:22 Attending Provider: Luana Boswell Primary Care Provider: Sheryl Friedman Discharge Orders/Prescriptions Prescriptions: No Action PNV-[place] 28-1-300 mg capsule 1 cap PO DAILY famotidine [Pepcid] 20 mg tablet 20 mg PO BID Qty: 60 4RF loratadine [Allergy Relief (loratadine)] 10 mg tablet 10 mg PO DAILY ondansetron HCl 4 mg tablet 4 mg PO Q6H PRN (Reason: nausea and vomiting) Qty: 30 3RF Referrals / Follow Up: Sheryl Friedman MD [Primary Care Provider] -
--- NOTE | 2024-03-25 08:12 | HP.PCM.OB_ITS ---
HPI - General General Date of Admission: 03/25/24 HPI Narrative SILVESTRE MELENDREZ, is a 28 F who presents IAL 4 to 8 cm quick change Maternal Data Information TIM Calculator Estimated Delivery Date Method Current WG Current Estimate 03/23/24 LMP (Certain) 40w 2d PFSH PFSH Medical History Contraception management Mastitis Vacuum extractor delivery, delivered Anxiety Lab test positive for detection of COVID-19 virus Anxiety Narcolepsy Acne Depression Home Medications ?Medication ?Instructions ?Recorded ?Last Taken ?Type multivit-min no.71-iron fum 28 1 cap PO DAILY 08/06/23 03/24/24 10:00 History mg-folate no.1 1 mg-dha 300 mg 1 cap capsule (PNV-[place]) ondansetron HCl 4 mg tablet 4 mg PO Q6H PRN nausea and 08/27/23 Unknown Rx vomiting #30 tabs famotidine 20 mg tablet (Pepcid) 20 mg PO BID #60 tabs 01/13/24 03/25/24 01:00 Rx 20 mg loratadine 10 mg tablet (Allergy 10 mg PO DAILY 03/24/24 03/23/24 22:00 History Relief (loratadine)) 10 mg Allergy/AdvReac Type Severity Reaction Status Date / Time No Known Allergies Allergy Verified 03/24/24 15:35 Family History Grandmother Diabetes Breast cancer, Onset Age: 80 maternal Brother Diabetes type 1, controlled Mother Thyroid disorder Father CVA (cerebral vascular accident) DVT (deep venous thrombosis) Sister Cancer ALL Grandmother Breast cancer, Onset Age: 70 Paternal Surgical History [place] teeth extracted Social History adopted: No household members: spouse and children number of children: 1 current occupational status: 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) pets and animals: cat(s) and dog(s) history of recent travel: No sexually active: Yes Smoking Status: Never smoker alcohol intake: current alcohol intake frequency: holidays/special occasions only details: not while substance use type: does not use well-balanced diet: daily or most days caffeine: Yes Type: coffee Number of servings: 1 eating out: rarely or never during the past year weight has: remained stable what type of physical activity do you participate in: other details: planks frequency: 1-2 times per week duration: < 15 minutes/day chris/baptist: Non-Mormonism/Independent seatbelt use: always do you feel safe at home: Yes additional social history: Go- [employer] History 2 Elective abortions Hx Para 1 Spontaneous abortions Hx # Term Pregnancies Ectopic pregnancies Hx # Pregnancies Multiple births # of living children 1 Past Pregnancies Del. Date Name GA/Weeks Outcome Route Bth Weight Gen Labor Lgth Anesthesia Del Locatn Provider FOB Unknown 2021 Sandy live - full term vacuum Female epidural [facility] Go Delivery Date: Last Updated by: Caitie Garcia vacuum delivery Visit Details Expected Delivery Route/Plan Labor Preferences- CB/BF classes: no labor support person: Go labor intervention preferences: [] pain management options preferred: no epidural. Limited. cut cord/dad catch: cord : yes PP control planned: discussed discussed possible routes of delivery and associated risks: [] special requests: [] Plans Covid status: discussed Flu vaccine: given Tdap vaccine: given 12/30/23 Rhogam: NA LARC form signed: yes Problem list reviewed and updated with the most current plan of care details and appropriate orders placed. Relevant counseling for the gestational age provided. Continue routine care and follow up unless otherwise noted in visit notes/problem list details OB Flowsheet Initial Weight: Not Recorded Date -?-?-?-?-?-?-?-?-?-?-?-?- EGA Weight BP Urine Prot -?-?-?-?-?-?-?-?-?-?-?-?- Glucose FHR FuHt Pres Dilation -?-?-?-?-?-?-?-?-?-?-?-?- Effaced St Visit Note 08/15/23 -?-?-?-?-?-?-?-?-?-?-?-?- 8w 3d 182 lb 4 oz 110/74 -?-?-?-?-?-?-?-?-?-?-?-?- 175 -?-?-?-?-?-?-?-?-?-?-?-?- KW- CRL 20mm & c ons with dates. no concerns today and declines NIPT 09/11/23 -?-?-?-?-?-?-?-?-?-?-?-?- 12w 2d 180 lb 8 oz 121/72 Nega tive -?-?-?-?-?-?-?-?-?-?-?-?- Negative 145 -?-?-?-?-?-?-?-?-?-?-?-?- JV- no lof, cram ping, or bleeding. normal first trimester labs. 10/08/23 -?-?-?-?-?-?-?-?-?-?-?-?- 16w 1d 182 lb 6 oz 118/70 Nega tive -?-?-?-?-?-?-?-?-?-?-?-?- Negative 154 -?-?-?-?-?-?-?-?-?-?-?-?- MH-NO VB. Nausea resolved. [facility] US 10/21. Denies concerns 11/05/23 -?-?-?-?-?-?-?-?-?-?-?-?- 20w 1d 184 lb 126/67 Negative -?-?-?-?-?-?-?-?-?-?-?-?- Negative 152 -?-?-?-?-?-?-?-?-?-?-?-?- MH-No VB. Feelin g movement. [facility] US was 10/21:will get results. States rpt US is 11/20 placental issue. 12/02/23 -?-?-?-?-?-?-?-?-?-?-?-?- 24w 0d 189 lb 4 oz 118/64 Nega tive -?-?-?-?-?-?-?-?-?-?-?-?- Negative 148 -?-?-?-?-?-?-?-?-?-?-?-?- LC- no vb/ctx/lo f. good fm. LC- no vb/ctx/lof. good fm.p [place]- q4 weeks growths 12/30/23 -?-?-?-?-?-?-?-?-?-?-?-?- 28w 0d 195 lb 4 oz 112/66 Nega tive -?-?-?-?-?-?-?-?-?-?-?-?- Negative 156 28 -?-?-?-?-?-?-?-?-?-?-?-?- MH-No VB, LOF. G ood FM. tdap. 28 wk labs pending. Next US MFM 01/1501/13/24 -?-?-?-?-?-?-?-?-?-?-?-?- 30w 0d 201 lb 8 oz 120/83 Nega tive -?-?-?-?-?-?-?-?-?-?-?-?- Negative 144 32 -?-?-?-?-?-?-?-?-?-?-?-?- JV- no lof, vagi nal bleeding, or dec fm. getting monthly ultrasounds 01/28/24 -?-?-?-?-?-?-?-?-?-?-?-?- 32w 1d 202 lb 114/74 Negative -?-?-?-?-?-?-?-?-?-?-?-?- Negative 146 33 -?-?-?-?-?-?-?-?--?-?-?-?- KW- no vb/lof/ct x. good fm. no concerns today 02/12/24 -?-?-?-?-?-?-?-?-?-?-?-?- 34w 2d 208 lb 6 oz 125/79 Nega tive -?-?-?-?-?-?-?-?-?-?-?-?- Negative 145 34.5 -?-?-?-?-?-?-?-?-?-?-?-?- JV- no lof, vagi nal bleeding, or dec fm. indigestion is sever. starting carafate and omeprazole as needed. 02/24/24 -?-?-?-?-?-?-?-?-?-?-?-?- 36w 0d 207 lb 113/75 Negative -?-?-?-?-?-?-?-?-?-?-?-?- Negative 130 36 Cephalic -?-?-?-?-?-?-?-?-?-?-?-?- .5 SM- no v b lof good fm no regular ctx gbs 03/03/24 -?-?-?-?-?-?-?-?-?-?-?-?- 37w 1d 210 lb 121/76 Negative -?-?-?-?-?-?-?-?-?-?-?-?- Negative 145 37 Cephalic -?-?-?-?-?-?-?-?-?-?-?-?- JV- patient decl austyn pelvic exam. no lof, vaginal bleeding, or dec fm. GBS neg. has growth scan next week 03/10/24 -?-?-?-?-?-?-?-?-?-?-?-?- 38w 1d 211 lb 112/78 Negative -?-?-?-?-?-?-?-?-?-?-?-?- Negative 140 38 Cephalic 0 .5 -?-?-?-?-?-?-?-?-?-?-?-?- SM- no vb lof go od fm no regular ctx 03/20/24 -?-?-?-?-?-?-?-?-?-?-?-?- 39w 4d 213 lb 4 oz 123/81 Nega tive -?-?-?-?-?-?-?-?-?-?-?-?- Negative 140 40 Cephalic 0 .5 -?-?-?-?-?-?-?-?-?-?-?-?- SM- no vb lof go od fm n oreuglar ctx 03/24/24 -?-?-?-?-?-?-?-?-?-?-?-?- 40w 1d 213 lb 113/76 Negative -?-?-?-?-?-?-?-?-?-?-?-?- Negative 140 40 Cephalic 2 .5 -?-?-?-?-?-?-?-?-?-?-?-?- SM questionable LOF since 245 no vb good fm ctx q 10 min NST FHR Rate Baby A Baseline: 140 Variability:: Moderate Accelerations:: 15 x 15 Decelerations:: None NST Reactive:: Yes FHR Category:: Category I Uterine Activity:: q3-5 ROS Constitutional Constitutional: Reports systems reviewed and no addt'l complaints, except as documented ENT HEENT: Reports systems reviewed and no addt'l complaints, except as documented Cardiovascular Cardiovascular: Reports systems reviewed and no addt'l complaints, except as documented Respiratory/Chest Respiratory/Chest: Reports systems reviewed and no addt'l complaints, except as documented Gastrointestinal Gastrointestinal: Reports systems reviewed and no addt'l complaints, except as documented and nausea; Denies abdominal pain Genitourinary Genitourinary: Reports systems reviewed and no addt'l complaints, except as documented, contractions Details: present and frequency (regular ) and movement Details: present Musculoskeletal Musculoskeletal: Reports systems reviewed and no addt'l complaints, except as documented Integumentary Integumentary: Reports as per HPI Neurologic Neurologic: Reports systems reviewed and no addt'l complaints, except as documented Endocrine Endocrinology: Reports systems reviewed and no addt'l complaints, except as documented Vital Signs Vital Signs Vital Signs: 03/25/24 05:15 03/25/24 05:15 03/25/24 05:15 Temperature Temperature Source Tympanic Pulse Rate 86 Respiratory Rate Blood Pressure 128/76 H BP Systolic 128 BP Diastolic 76 Pulse Ox 03/25/24 05:15 03/25/24 05:15 03/25/24 07:29 Temperature 97.7 F L Temperature Source Pulse Rate 75 Respiratory Rate 16 Blood Pressure BP Systolic BP Diastolic Pulse Ox 03/25/24 07:29 03/25/24 07:30 03/25/24 07:30 Temperature Temperature Source Pulse Rate 86 Respiratory Rate Blood Pressure 126/66 H BP Systolic 126 BP Diastolic 66 Pulse Ox 100 03/25/24 07:35 03/25/24 07:35 03/25/24 07:40 Temperature Temperature Source Pulse Rate 78 83 Respiratory Rate Blood Pressure BP Systolic BP Diastolic Pulse Ox 100 03/25/24 07:40 03/25/24 07:44 03/25/24 07:44 Temperature Temperature Source Pulse Rate 81 Respiratory Rate Blood Pressure 139/73 H
--- NOTE | 2024-03-25 08:12 | PCM.HP.OB ---
HPI - General General Date of Admission: 03/25/24 HPI Narrative SILVESTRE MELENDREZ, is a 28 F who presents IAL 4 to 8 cm quick change Maternal Data Information TIM Calculator Estimated Delivery Date Method Current WG Current Estimate 03/23/24 LMP (Certain) 40w 2d PFSH PFSH Medical History Contraception management Mastitis Vacuum extractor delivery, delivered Anxiety Lab test positive for detection of COVID-19 virus Anxiety Narcolepsy Acne Depression Home Medications ?Medication ?Instructions ?Recorded ?Last Taken ?Type multivit-min no.71-iron fum 28 1 cap PO DAILY 08/06/23 03/24/24 10:00 History mg-folate no.1 1 mg-dha 300 mg 1 cap capsule (PNV-[place]) ondansetron HCl 4 mg tablet 4 mg PO Q6H PRN nausea and 08/27/23 Unknown Rx vomiting #30 tabs famotidine 20 mg tablet (Pepcid) 20 mg PO BID #60 tabs 01/13/24 03/25/24 01:00 Rx 20 mg loratadine 10 mg tablet (Allergy 10 mg PO DAILY 03/24/24 03/23/24 22:00 History Relief (loratadine)) 10 mg Allergy/AdvReac Type Severity Reaction Status Date / Time No Known Allergies Allergy Verified 03/24/24 15:35 Family History Grandmother Diabetes Breast cancer, Onset Age: 80 maternal Brother Diabetes type 1, controlled Mother Thyroid disorder Father CVA (cerebral vascular accident) DVT (deep venous thrombosis) Sister Cancer ALL Grandmother Breast cancer, Onset Age: 70 Paternal Surgical History [place] teeth extracted Social History adopted: No household members: spouse and children number of children: 1 current occupational status: 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) pets and animals: cat(s) and dog(s) history of recent travel: No sexually active: Yes Smoking Status: Never smoker alcohol intake: current alcohol intake frequency: holidays/special occasions only details: not while substance use type: does not use well-balanced diet: daily or most days caffeine: Yes Type: coffee Number of servings: 1 eating out: rarely or never during the past year weight has: remained stable what type of physical activity do you participate in: other details: planks frequency: 1-2 times per week duration: < 15 minutes/day chris/mandaen: Non-Druze/Independent seatbelt use: always do you feel safe at home: Yes additional social history: [employer]- [employer] History 2 Elective abortions Hx Para 1 Spontaneous abortions Hx # Term Pregnancies Ectopic pregnancies Hx # Pregnancies Multiple births # of living children 1 Past Pregnancies Del. Date Name GA/Weeks Outcome Route Bth Weight Gen Labor Lgth Anesthesia Del Locatn Provider FOB Unknown 2021 Sandy live - full term vacuum Female epidural [facility] Go Delivery Date: Last Updated by: Caitie Garcia vacuum delivery Visit Details Expected Delivery Route/Plan Labor Preferences- CB/BF classes: no labor support person: Go labor intervention preferences: [] pain management options preferred: no epidural. Limited. cut cord/dad catch: cord : yes PP control planned: discussed discussed possible routes of delivery and associated risks: [] special requests: [] Plans Covid status: discussed Flu vaccine: given Tdap vaccine: given 12/30/23 Rhogam: NA LARC form signed: yes Problem list reviewed and updated with the most current plan of care details and appropriate orders placed. Relevant counseling for the gestational age provided. Continue routine care and follow up unless otherwise noted in visit notes/problem list details OB Flowsheet Initial Weight: Not Recorded Date <del>?</del> EGA Weight BP Urine Prot <del>?</del> Glucose FHR FuHt Pres Dilation <del>?</del> Effaced St Visit Note 08/15/23 <del>?</del> 8w 3d 182 lb 4 oz 110/74 <del>?</del> 175 <del>?</del> KW- CRL 20mm & cons with dates. no concerns today and declines NIPT 09/11/23 <del>?</del> 12w 2d 180 lb 8 oz 121/72 Negative <del>?</del> Negative 145 <del>?</del> JV- no lof, cramping, or bleeding. normal first trimester labs. 10/08/23 <del>?</del> 16w 1d 182 lb 6 oz 118/70 Negative <del>?</del> Negative 154 <del>?</del> MH-NO VB. Nausea resolved. MFM US 10/21. Denies concerns 11/05/23 <del>?</del> 20w 1d 184 lb 126/67 Negative <del>?</del> Negative 152 <del>?</del> MH-No VB. Feeling movement. MFM US was 10/21:will get results. States rpt US is 11/20 placental issue. 12/02/23 <del>?</del> 24w 0d 189 lb 4 oz 118/64 Negative <del>?</del> Negative 148 <del>?</del> LC- no vb/ctx/lof. good fm. LC- no vb/ctx/lof. good fm.placenta [place]- q4 weeks growths 12/30/23 <del>?</del> 28w 0d 195 lb 4 oz 112/66 Negative <del>?</del> Negative 156 28 <del>?</del> MH-No VB, LOF. Good FM. tdap. 28 wk labs pending. Next US MFM 5/2 01/13/24 <del>?</del> 30w 0d 201 lb 8 oz 120/83 Negative <del>?</del> Negative 144 32 <del>?</del> JV- no lof, vaginal bleeding, or dec fm. getting monthly ultrasounds 01/28/24 <del>?</del> 32w 1d 202 lb 114/74 Negative <del>?</del> Negative 146 33 <del>?</del> KW- no vb/lof/ctx. good fm. no concerns today 02/12/24 <del>?</del> 34w 2d 208 lb 6 oz 125/79 Negative <del>?</del> Negative 145 34.5 <del>?</del> JV- no lof, vaginal bleeding, or dec fm. indigestion is sever. starting carafate and omeprazole as needed. 02/24/24 <del>?</del> 36w 0d 207 lb 113/75 Negative <del>?</del> Negative 130 36 Cephalic <del>?</del> .5 SM- no vb lof good fm no regular ctx gbs 03/03/24 <del>?</del> 37w 1d 210 lb 121/76 Negative <del>?</del> Negative 145 37 Cephalic <del>?</del> JV- patient declines pelvic exam. no lof, vaginal bleeding, or dec fm. GBS neg. has growth scan next week 03/10/24 <del>?</del> 38w 1d 211 lb 112/78 Negative <del>?</del> Negative 140 38 Cephalic 0.5 <del>?</del> SM- no vb lof good fm no regular ctx 03/20/24 <del>?</del> 39w 4d 213 lb 4 oz 123/81 Negative <del>?</del> Negative 140 40 Cephalic 0.5 <del>?</del> SM- no vb lof good fm n oreuglar ctx 03/24/24 <del>?</del> 40w 1d 213 lb 113/76 Negative <del>?</del> Negative 140 40 Cephalic 2.5 <del>?</del> SM questionable LOF since 245 no vb good fm ctx q 10 min NST FHR Rate Baby A Baseline: 140 Variability:: Moderate Accelerations:: 15 x 15 Decelerations:: None NST Reactive:: Yes FHR Category:: Category I Uterine Activity:: q3-5 ROS Constitutional Constitutional: Reports systems reviewed and no addt'l complaints, except as documented ENT HEENT: Reports systems reviewed and no addt'l complaints, except as documented Cardiovascular Cardiovascular: Reports systems reviewed and no addt'l complaints, except as documented Respiratory/Chest Respiratory/Chest: Reports systems reviewed and no addt'l complaints, except as documented Gastrointestinal Gastrointestinal: Reports systems reviewed and no addt'l complaints, except as documented and nausea; Denies abdominal pain Genitourinary Genitourinary: Reports systems reviewed and no addt'l complaints, except as documented, contractions Details: present and frequency (regular ) and movement Details: present Musculoskeletal Musculoskeletal: Reports systems reviewed and no addt'l complaints, except as documented Integumentary Integumentary: Reports as per HPI Neurologic Neurologic: Reports systems reviewed and no addt'l complaints, except as documented Endocrine Endocrinology: Reports systems reviewed and no addt'l complaints, except as documented Vital Signs Vital Signs Vital Signs: 03/25/24 05:15 03/25/24 05:15 03/25/24 05:15 Temperature Temperature Source Tympanic Pulse Rate 86 Respiratory Rate Blood Pressure 128/76 H BP Systolic 128 BP Diastolic 76 Pulse Ox 03/25/24 05:15 03/25/24 05:15 03/25/24 07:29 Temperature 97.7 F L Temperature Source Pulse Rate 75 Respiratory Rate 16 Blood Pressure BP Systolic BP Diastolic Pulse Ox 03/25/24 07:29 03/25/24 07:30 03/25/24 07:30 Temperature Temperature Source Pulse Rate 86 Respiratory Rate Blood Pressure 126/66 H BP Systolic 126 BP Diastolic 66 Pulse Ox 100 03/25/24 07:35 03/25/24 07:35 03/25/24 07:40 Temperature Temperature Source Pulse Rate 78 83 Respiratory Rate Blood Pressure BP Systolic BP Diastolic Pulse Ox 100 03/25/24 07:40 03/25/24 07:44 03/25/24 07:44 Temperature Temperature Source Pulse Rate 81 Respiratory Rate Blood Pressure 139/73 H BP Systolic 139 BP Diastolic 73 Pulse Ox 100 03/25/24 07:45 03/25/24 07:45 03/25/24 07:48 Temperature Temperature Source Pulse Rate 71 71 Respiratory Rate Blood Pressure BP Systolic BP Diastolic Pulse Ox 100 03/25/24 07:48 03/25/24 07:50 03/25/24 07:50 Temperature Temperature Source Pulse Rate 82 Respiratory Rate Blood Pressure BP Systolic BP Diastolic Pulse Ox 89 99 03/25/24 07:55 03/25/24 07:55 03/25/24 07:59 Temperature Temperature Source Pulse Rate 68 Respiratory Rate Blood Pressure 123/67 H BP Systolic 123 BP Diastolic 67 Pulse Ox 100 03/25/24 07:59 03/25/24 07:59 03/25/24 08:00 Temperature Temperature Source Pulse Rate 68 77 Respiratory Rate Blood Pressure BP Systolic BP Diastolic Pulse Ox 87 03/25/24 08:00 03/25/24 08:05 03/25/24 08:05 Temperature Temperature Source Pulse Rate 81 Respiratory Rate Blood Pressure BP Systolic BP Diastolic Pulse Ox 99 94 Weight Weight: 211 lb 10.3 oz Body Mass Index (BMI) 35.2 Physical Exam Const alert, oriented x3 and healthy appearing Constitutional Narrative: uncomfortable with contractions HEENT normocephalic and moist oral mucous membranes Head and Scalp: atraumatic Neck full ROM, no lymphadenopathy, supple and thyroid normal General: trachea midline Thyroid: thyroid normal Lymph Lymphatic: no lymphadenopathy noted Chest inspection of chest normal Resp normal respiratory effort Cardio regular rate GI normal to inspection, nondistended, normoactive bowel sounds, soft to palpation and non-tender Inspection: gravid external exam normal Bimanual Exam - Vag & Uterus: uterus non-tender Manual OB Exam: estimated gestational size appropriate, presentation cephalic, dilated, effaced and station Extremity normal to inspection General Extremity: Negative for edema Skin no rashes or lesions noted Neuro deep tendon reflexes 2+ bilaterally Motor Exam: strength 5/5 throughout and clonus absent Psych mental status grossly normal Labs Labs Labs: Blood Type O POSITIVE Antibody Screen NEGATIVE Hct 41.7 % (37-47) Hgb 13.8 g/dL (12.0-15.0) Obstetrics Ultrasound Syphilis Total Ab Non-reactive Rubella IgG Antibody Reactive (Nonreactive) Hep Bs Antigen Non-Reactive (Nonreactive) Hepatitis C Antibody Non-Reactive (Nonreactive) Chlamydia DNA ([place]) Negative (Negative) N.gonorrhoeae DNA ([place]ARD[place]) Negative (Negative) HIV 1&2 Antibody Non-Reactive (Nonreactive) Glucose 1 Hr 50 gm 114 mg/dL (70-140) Gest Glucose Tolerance MG/DL Assessment & Plan (1) 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
--- NOTE | 2024-03-25 08:12 | EX.PCM.OBRPT ---
Assessment & Plan (1) Active labor at term: (2) Supervision of high-risk : QUALIFIERS: Trimester: third trimester Qualified Code(s): O09.93 - Supervision of high risk , unspecified, third trimester COMMENT: [id number], TIM 03/23/24, girl Ashlyn PC Sandy, Go (3) : QUALIFIERS: Weeks of gestation: 40 weeks Qualified Code(s): Z3A.40 - 40 weeks gestation of COMMENT: GBS neg, Declines genetic & carrier testing, nl GCT (4) History of congenital heart defect: COMMENT: in patient, closed spontaneously as a child, echo per MFM not required (5) Vaginal delivery: COMMENT: SM IAL girl Ashlyn Maternal Data Information TIM Calculator Estimated Delivery Date Method Current WG Current Estimate 03/23/24 LMP (Certain) 40w 2d Vaginal Delivery Operative Information Date of Procedure: 03/25/24 Pre-Operative Diagnosis: see a/p diagnoses Post-Operative Diagnosis: same Surgery / Procedure Performed: Spontaneous Vaginal Delivery Special Medications: none Estimated Blood Loss: 100 Fluids Replaced: crystalloid Findings Description of Procedure: Patient began pushing and delivered the head in the DEMETRIUS presentation. The head was delivered atraumatically . The anterior and posterior shoulders delivered without complication followed by the rest of the infant and the was placed on the maternal abdomen. Delayed cord clamping was employed for approximately 60 seconds. Cord was clamped and cut and gentle traction was applied to the cord and the placenta delivered spontaneously immediately following it was noted to be intact with three-vessel cord. The perineum and vagina were inspected and noted to have no laceration. EBL was 100. Patient and tolerated delivery well. Amniotic Fluid Description: Clear Placental Delivery Description: Spontaneous Placenta Disposition: [facility] Cord Vessel Description: 3 Vessels Cord Entanglement: None Delayed Cord Clamping: Yes Post Vaginal Delivery Medications Given After Delivery: IV Pitocin Episiotomy Description: None Complication Complications: None Procedures Urinary/Genital [id number]: [id number] Vaginal Delivery global pkg
--- NOTE | 2024-03-25 08:12 | PCM.DC ---
Discharge Instructions Diet Discharge Diet: No restrictions Activity Discharge Activity: Return to Normal Activity, May Drive, May Shower and May Take a Tub Bath (in 4 weeks) May resume sexual activity in: 6-8 weeks (after seen by OB provider) Weight Bearing Status: Full weight bearing Lifting Restrictions: none Dressing / Incision Call your doctor if you observe: Fever of 101 or Higher, Inability to urinate, Using more than 1 pad per hour (for more than 2 hours in a row or more), Shortness of breath, Dizziness, Chest pain and - (headache not controlled with tylenol, change in vision) Follow Up Care When: in 6 weeks for visit, call the office to make the appointment. If you had elevated blood pressures call the office to be seen within 1 week. Test Results: Test results from this visit will be discussed in further detail at your follow-up appointment, if applicable. Discharge Plan Admission Admit Date/Time: 03/25/24 08:07 Attending Provider: Luana Boswell Primary Care Provider: Sheryl Friedman Discharge Orders/Prescriptions Prescriptions: No Action PNV-[place] 28-1-300 mg capsule 1 cap PO DAILY famotidine [Pepcid] 20 mg tablet 20 mg PO BID Qty: 60 4RF loratadine [Allergy Relief (loratadine)] 10 mg tablet 10 mg PO DAILY ondansetron HCl 4 mg tablet 4 mg PO Q6H PRN (Reason: nausea and vomiting) Qty: 30 3RF Referrals / Follow Up: Sheryl Friedman MD [Primary Care Provider] -
[2024-03-25] MEDS: Acetaminophen 500 MG Tablet 1000 MG PO ×3 (08:39→22:18)
[2024-03-25] MEDS: Oxytocin 15 Units/NS 250ml 15 UNITS/250 ML IV.SOLN 83 UNITS IV (08:39)
[2024-03-25] MEDS: Naproxen 500 MG Tablet PO ×2 (09:56→18:49)
[2024-03-26 00:07] VITALS: BP 118/62; PULSE 73; RESP 16; TEMP 36.7; O2SAT 97
[2024-03-26 04:05] VITALS: BP 114/75; PULSE 77; RESP 16; TEMP 36.2; O2SAT 98
[2024-03-26] MEDS: Naproxen 500 MG Tablet PO (06:17)
--- NOTE | 2024-03-26 06:48 | PCM.PN.OB ---
Subjective Subjective Patient doing well without complaints. Tolerating PO. Ambulating and voiding without difficulty. feeding well. Denies chest pain, shortness of breath, calf pain/swelling, fevers, chills, lightheadedness. Objective Data Objective Data Vital Signs: Vital Signs Temp Pulse Resp BP Pulse Ox O2 Del Method 97.1 F L 77 16 114/75 98 Room Air 03/26/24 04:05 03/26/24 04:05 03/26/24 04:05 03/26/24 04:05 03/26/24 04:05 03/26/24 04:05 Oxygen Delivery Method Room Air Weight: 211 lb 10.3 oz Body Mass Index (BMI) 35.2 Intake & Output: Intake and Output for Last 24 Hours 03/24/24 03/25/24 03/26/24 23:59 23:59 23:59 Intake Total 465.04 / 465.04 Output Total 100 / 100 Balance 365.04 / 365.04 Lab / Micro Data 03/25/24 05:48 Labs: Laboratory Results - last 24 hr 03/25/24 05:48: Syphilis Total Ab Non-reactive, Blood Type O POSITIVE, Antibody Screen NEGATIVE ROS Constitutional Constitutional: Reports systems reviewed and no addt'l complaints, except as documented Cardiovascular Cardiovascular: Reports systems reviewed and no addt'l complaints, except as documented Respiratory/Chest Respiratory/Chest: Reports systems reviewed and no addt'l complaints, except as documented Gastrointestinal Gastrointestinal: Reports systems reviewed and no addt'l complaints, except as documented Physical Exam Const alert, oriented x3 and no apparent distress HEENT Head and Scalp: atraumatic Resp normal respiratory effort GI soft to palpation and non-tender Bimanual Exam - Vag & Uterus: uterus non-tender Uterus Palpation: uterus fundus firm (below Umbilicus) Assessment & Plan (1) Vaginal delivery: COMMENT: SM IAL girl Ashlyn PLAN: Plan s/p PPD # 1 1. routine post delivery care 2. breast feeding- support given 3. rh positive 4. rubella immune
[2024-03-26 07:50] VITALS: BP 132/87; PULSE 83; RESP 16; TEMP 36.4; O2SAT 100
[2024-03-26] MEDS: Acetaminophen 500 MG Tablet 1000 MG PO (10:28)
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
[2024-03-26 12:55] VITALS: BP 116/80; PULSE 75; RESP 16; TEMP 36.6; O2SAT 99
== END 2024-03-26 13:20 | disposition home or self-care (01) | DRG 807 ==
PROVIDERS: Admitting Provider Obstetrics & Gynecology; PCP Internal Medicine; Referring Provider Obstetrics & Gynecology; Visit Provider Obstetrics & Gynecology
DX: O48.0 Post-term pregnancy (principal); Z37.0 Single live birth; O99.344 Other mental disorders complicating childbirth; F32.A Depression, unspecified; Z3A.40 40 weeks gestation of pregnancy; Z86.16 Personal history of COVID-19; Z87.74 Personal history of (corrected) congenital malformations of heart and circulatory system
CPT/HCPCS: 59025; 59050; 85025; 86780; 86850; 86900; 86901; 99221; J7120; G0378

== ENCOUNTER → 2024-07-23 | Outpatient (CLI) | payer BC, SELFPAY ==
[2024-07-23 11:58] LABS: Absolute Lymphocyte Count 1.95 X10^3/uL (0.83-4.51); Absolute Neutrophil Count 3.7 X10^3/uL (2.0-7.7); Basophil# 0.07 X10^3/uL; Eosinophil# 0.92 X10^3/uL; Eosinophils% 12.7 % (0-5); Hematocrit 41.6 % (37-47); Hemoglobin 13.3 g/dL (12.0-15.0); Lymphocyte # 1.95 X10^3/ul (0.83-4.51); Lymphocyte % 26.9 % (19-41); Mean Corpuscular Hgb 28.6 pg (27.0-32.0); Mean Corpuscular Volume 89.5 fL (81-99); Mean Platelet Vol. 10.1 fl (6.2-12.0); Monocyte# 0.61 X10^3/uL; Monocyte% 8.4 % (0-10); NRBC Flagged by Analyzer 0 % (0-5); Neutrophil # 3.69 X10^3/uL (2.7-7.7); Neutrophil % 50.9 % (47-70); Platelet Count 276 K/mm3 (150-450); RBC Distribution Width CV 13.1 % (11.6-14.6); RBC Distribution Width SD 42.9 fl (35.1-43.9); Red Blood Count 4.65 M/mm3 (4.2-5.4); White Blood Count 7.3 K/mm3 (4.4-11.0)
[2024-07-23 12:26] LABS: Vitamin B12 1183 pg/mL (211-911)
[2024-07-23 12:46] LABS: AST(SGOT) 17 U/L (15-37); Alanine Aminotransfer ALT/SGPT 23 U/L (13-56); Albumin, Serum 3.8 g/dL (3.2-5.0); Alkaline Phosphatase 86 U/L (45-117); Anion Gap 4 (5-15); BUN 19 mg/dL (7-18); BUN/Creat Ratio 21.9 RATIO (10-20); Calcium,Total 8.8 mg/dL (8.5-10.1); Chloride 110 mmol/L (98-107); Cholesterol 132 mg/dL (200); Creatinine, Serum 0.87 mg/dL (0.55-1.02); EST Glomerular Filtration Rate 82 mL/min (>60); Est Glom Filt Rate - Afr Amer 99 mL/min (>60); Ferritin 104 ng/mL (8-252); Globulin 3.7 g/dL (2.2-4.2); Glucose 88 mg/dL (74-106); High Density Lipoprotein 62 mg/dL; Iron 78 ug/dL (50-170); Iron Binding Capacity,Total 227 ug/dL (250-450); PERCENT IRON SATURATION 34.4 % (15.0-55.0); Potassium 4.5 mmol/L (3.5-5.1); Protein, Total 7.5 g/dL (6.4-8.2); Sodium Level 139 mmol/L (136-145); T4 Free Direct 0.85 ng/dL (0.76-1.46); Triglycerides 25 mg/dL; Very Low Density Lipoprotein 5 mg/dL (5-40)
== END | disposition home or self-care (01) ==
LOC: BFHLAB 08:30
PROVIDERS: PCP Nurse Practitioner Family; Referring Provider Nurse Practitioner Family; Visit Provider Nurse Practitioner Family
DX: Z00.01 Encounter for general adult medical examination with abnormal findings (principal); R53.83 Other fatigue
CPT/HCPCS: 36415; 80053; 80061; 82306; 82607; 82728; 83540; 83550; 84439; 84443; 85025

== ENCOUNTER → 2025-01-06 | Outpatient (CLI) | payer BC, SELFPAY | END | disposition home or self-care (01) | LOC: LABSPEC 15:07 | PROVIDERS: PCP Nurse Practitioner Family; Referring Provider Otolaryngology; Visit Provider Otolaryngology | DX: J32.9 Chronic sinusitis, unspecified (principal) | CPT/HCPCS: 87070; 87077; 87205 ==

== ENCOUNTER → 2025-05-10 | Outpatient (CLI) | payer BC, SELFPAY ==
[2025-05-14 16:09] LABS: HPV APTIMA, High Risk Negative (Negative)
== END | disposition home or self-care (01) ==
LOC: LABSPEC 14:49
PROVIDERS: PCP Nurse Practitioner Family; Referring Provider Obstetrics & Gynecology; Visit Provider Obstetrics & Gynecology
DX: Z12.4 Encounter for screening for malignant neoplasm of cervix (principal)
CPT/HCPCS: 87624; 88175; G0145